=== PATIENT | male | born 1950 | race Caucasian/White ===

== ENCOUNTER 2022-11-02 22:12 | Emergency (ER) | payer MEDICARE, BC, SELFPAY ==
[2022-11-02 22:16] VITALS: BP 139/83; PULSE 81; TEMP 36.8; O2SAT 97
--- NOTE | 2022-11-02 22:26 | CRLHL7_ITS ---
For Patients: As a result of the Century Cures Act, medical imaging exams and procedure reports are released immediately into your electronic medical record. You may view this report before your referring provider. If you have questions, please contact your health care provider. INDICATION: [id number]. TECHNIQUE: Chest 2 views. COMPARISON: None. FINDINGS: Cardiovascular and mediastinum: Heart size and vasculature are normal in caliber and appearance. Lungs and pleural spaces: Hyperinflated lungs which could suggest emphysema. Lungs are clear. Blunting of the costophrenic angles. No sign of infiltrate or mass. No sign of large pleural effusion. No pneumothorax. Bones and soft tissues: No significant findings. IMPRESSION: Hyperinflated lungs which could suggest emphysema. No focal consolidations. Dictated by Star Garcia MD @ 11/02/2022 11:30:37 PM (Electronically Signed)
[2022-11-02 22:48] LABS: HCO3 VBG 28 mmol/L (21-28); PCO2 VBG 45 mmHG (40-50); PO2 VBG 47.6 mmHG (25-47); pH VBG 7.399 (7.32-7.43)
[2022-11-02 23:00] VITALS: O2SAT 95
[2022-11-02 23:03] LABS: Basophils Absolute Auto 0.04 K/uL (0.00-0.30); Basophils Percent Auto 0.5 % (0.0-3.0); Eosinophils Absolute Auto 0.54 K/uL (0.00-0.50); Eosinophils Percent Auto 6.4 % (0.0-7.0); Hematocrit 45.4 % (37.0-53.0); Hemoglobin* 14.8 gm/dL (13.5-17.5); Immature Granulocytes Abs Auto 0.01 K/uL (0.00-0.30); Immature Granulocytes Pct Auto 0.1 %; Lymphocytes Absolute Auto 3.02 K/uL (0.90-2.90); Lymphocytes Percent Auto 35.7 % (20-44); Mean Corpuscular HGB Conc 33 gm/dL (32-36); Mean Corpuscular Hemoglobin 30 pg (26-34); Mean Corpuscular Volume 93 fL (80-100); Monocytes Percent Auto 8.1 % (0.0-11.0); Neutrophils Absolute Auto 4.17 K/uL (1.7-7.0); Neutrophils Percent Auto 49.2 % (42.0-72.0); Platelet Count* 134 K/uL (140-440); RDW Coefficient of Variation % 14.2 % (11.5-15.5); Red Blood Count 4.88 m/uL (4.30-5.90); White Blood Count* 8.47 K/uL (4.50-11.00)
[2022-11-02 23:07] LABS: Albumin* 4.3 g/dL (3.3-5.0); Chloride* 106 mmol/L (96-114); Potassium* 3.9 mmol/L (3.6-5.1); Sodium* 138 mmol/L (135-149)
[2022-11-02 23:09] LABS: Bilirubin Total* 0.9 mg/dL (0.1-1.5); Creatinine* 0.7 mg/dL (0.5-1.5); Estimated Glomerular Filt Rate 97 ml/min
[2022-11-02 23:10] LABS: Alanine Aminotransferase* 21 U/L (4-50); Alkaline Phosphatase* 61 U/L (40-150); Aspartate Amino Transferase* 24 U/L (12-35); Blood Urea Nitrogen* 17 mg/dL (7-30); Calcium* 9.5 mg/dL (8.4-10.6); Carbon Dioxide* 27 mmol/L (20-32); Glucose* 102 mg/dL (60-115); Slide Review Reflex No; Total Protein* 7.2 g/dL (6.0-8.3)
--- NOTE | 2022-11-02 23:12 | ED.SOB ---
HPI - SOB/Dyspnea General Chief Complaint: Shortness of Breath/Dyspnea Stated Complaint: Shortness of breath Time Seen by Provider: 11/02/22 22:40 History of Present Illness HPI Narrative: Pt is a 72 year old gentleman with a long history of COPD who presents with increased shortness of breath for several days worse today. Pt still smokes a limited number of cigarettes daily. Pt states that his symptoms began several days ago when he ran out of prednisone which he was given for treatment of a recent COPD exaserbation. No fever or chills. No chest pain. No cough. Pt states that his shortness of breath which is chronic just has slowly been getting worse. Pt has no productive cough. Pt is on 2 liters of oxygen at home and EMS turned him up to 6 liters in route. Upon arrival we were able to decrease the oxygen back to his baseline of 2 liters. Related Data Home oxygen amount: 2 liters Home Medications Medication Instructions Recorded Confirmed albuterol sulfate 90 mcg/actuation inhalation 11/02/22 aerosol inhaler (Ventolin HFA) ipratropium 0.5 mg-albuterol 3 mg ml inhalation 11/02/22 (2.5 mg base)/3 mL nebulization soln tamsulosin 0.4 mg capsule mg PO 11/02/22 tiotropium 2.5 mcg-olodaterol 2.5 inhalation 11/02/22 mcg/actuation mist for inhalation (Stiolto Respimat) Previous Rx's Medication Instructions Recorded azithromycin 250 mg tablet See Rx Instructions PO .COMPLEX #6 11/03/22 (Zithromax Z-Bright) tabs prednisone 20 mg tablet 20 mg PO BID #10 tabs 11/03/22 Allergies Allergy/AdvReac Type Severity Reaction Status Date / Time No Known Drug Allergies Allergy Verified 11/02/22 22:21 Review of Systems Status of ROS: Reports: 10 or more systems reviewed and unremarkable except as noted in History and below [facility] Medical History (Updated 11/03/22 @ 01:00 by Royer Dunham MD) BPH (benign prostatic hyperplasia) COPD (chronic obstructive pulmonary disease) Social History Smoking Status: Current every day smoker What tobacco products do you use: cigarettes Do you use any of these nicotine containing products: None Second hand tobacco smoke exposure: Yes How often do you have a drink containing alcohol: 2-3 times a week AUDIT-C Alcohol total score: 3 Non-prescribed substance use: denies use Exam Narrative: Exam Narrative: EXAM GENERAL: Patient appears comfortable and well. Breathing oxygen via nasal canula. EYES: No scleral icterus. THYROID: no thyroid nodules or thyromegaly. LYMPH: No supraclavicular or cervical lymphadenopathy. SKIN: Visible skin seen during exam normal or with benign process only. EXT: No dependent lower extremity pedal edema. HEART: Regular rate and rhythm with no murmurs, rubs, or gallops. LUNGS: Decreased breath sounds bilaterally. With mild expiratory wheezes. ABD: Soft, non tender, non distended. PSYCH: Good eye contact, speech is not pressured. Const: Vital Signs, click to edit/add: Vital Signs - 24 hr 11/02/22 22:16 Temperature 98.2 F Pulse Rate [Left P ulse Oximeter] 81 Blood Pressure [Le ft Upper Arm] 139/83 Pulse Oximetry 97 Oxygen Delivery Me thod Nasal Cannula Oxygen Flow Rate 2 Course Course Hospital Course: CXR, Blood Gas, CBC, D dimer, troponin, BMP ordered. Pt resting comfortably. Reevaluation(s) Reevaluation #1: Labs and x ray unremarkable. Pt resting comfortably. Pt given 40 mg of IV Solumedrol. Time: 00:57 Vital Signs Vital signs: Initial Vital Signs Temperature 98.2 F 11/02/22 22:16 Temperature Source Temporal Artery Scan 11/02/22 22:16 Pulse Rate 81 11/02/22 22:16 Pulse Rhythm 11/02/22 22:16 Pulse Strength 3+ Normal 11/02/22 22:16 Blood Pressure 139/83 11/02/22 22:16 Blood Pressure Mean 104 11/02/22 22:16 Blood Pressure Position Sitting 11/02/22 22:16 Pulse Oximetry 97 11/02/22 22:16 Oxygen Delivery Method 11/02/22 22:16 Oxygen Flow Rate 2 11/02/22 22:16 Vital Signs Temperature 98.2 F 11/02/22 22:16 Pulse Rate 81 11/02/22 22:16 Blood Pressure 139/83 11/02/22 22:16 Pulse Oximetry 97 11/02/22 22:16 Oxygen Delivery Method 11/02/22 22:16 Oxygen Flow Rate 2 11/02/22 22:16 Temperature 98.2 F 11/02/22 22:16 Pulse Rate 81 11/02/22 22:16 Blood Pressure 139/83 11/02/22 22:16 Pulse Oximetry 97 11/02/22 22:16 Oxygen Delivery Method 11/02/22 22:16 Oxygen Flow Rate 2 11/02/22 22:16 MDM - SOB/Dyspnea MDM Narrative Medical decision making narrative: Pt is a 72 year old gentleman with a history of COPD who presents with SOB. Work up including blood work, viral swabs, chest x ray showed no acute findings. Pt on baseline oxygen. Pt given 40 mg of solumedrol IV and Zithromax and Prednisone sent to [facility] for him. Pt counseled on tobacco cessation. PCP follow up recommended. Continue home medications. Differential Diagnosis Differential diagnosis: Likely acute exacerbation of chronic obstructive airways disease, congestive heart failure, community acquired pneumonia, asthma with exacerbation and pulmonary embolism Lab Data Labs: Lab Results 11/02/22 11/02/22 11/02/22 Range/Units 22:39 22:39 22:39 WBC 8.47 (4.50-11.00) K/uL RBC 4.88 (4.30-5.90) m/uL Hgb 14.8 (13.5-17.5) gm/dL Hct 45.4 (37.0-53.0) % MCV 93 (80-100) fL MCH 30 (26-34) pg MCHC 33 (32-36) gm/dL RDW Coeff of Odalis 14.2 (11.5-15.5) % Plt Count 134 L (140-440) K/uL Neut % (Auto) 49.2 (42.0-72.0) % Lymph % (Auto) 35.7 (20-44) % [place] % (Auto) 8.1 (0.0-11.0) % Eos % (Auto) 6.4 (0.0-7.0) % Baso % (Auto) 0.5 (0.0-3.0) % Neut # (Auto) 4.17 (1.7-7.0) K/uL Lymph # (Auto) 3.02 H (0.90-2.90) K/uL [place] # (Auto) 0.70 (0.00-0.90) K/UL Eos # (Auto) 0.54 H (0.00-0.50) K/uL Baso # (Auto) 0.04 (0.00-0.30) K/uL D-Dimer Quant (PE/DVT) < 0.27 (0.00-0.50) ug/ml VBG pH (7.32-7.43) VBG pCO2 (40-50) mmHG VBG pO2 (25-47) mmHG VBG HCO3 (21-28) mmol/L Sodium 138 (135-149) mmol/L Potassium 3.9 (3.6-5.1) mmol/L Chloride 106 (96-114) mmol/L Carbon Dioxide 27 (20-32) mmol/L BUN 17 (7-30) mg/dL Creatinine 0.7 (0.5-1.5) mg/dL Estimated GFR 97 ml/min Glucose 102 (60-115) mg/dL Calcium 9.5 (8.4-10.6) mg/dL Total Bilirubin 0.9 (0.1-1.5) mg/dL AST 24 (12-35) U/L ALT 21 (4-50) U/L Alkaline Phosphatase 61 (40-150) U/L Troponin I < 0.01 L (0.01-0.04) ng/mL Total Protein 7.2 (6.0-8.3) g/dL Albumin 4.3 (3.3-5.0) g/dL SARS-CoV-2 (PCR) (Negative) Influenza Type A (PCR) (Negative) Influenza Type B (PCR) (Negative) RSV (PCR) (Negative) 11/02/22 11/02/22 Range/Units 22:39 23:51 WBC (4.50-11.00) K/uL RBC (4.30-5.90) m/uL Hgb (13.5-17.5) gm/dL Hct (37.0-53.0) % MCV (80-100) fL MCH (26-34) pg MCHC (32-36) gm/dL RDW Coeff of Odalis (11.5-15.5) % Plt Count (140-440) K/uL Neut % (Auto) (42.0-72.0) % Lymph % (Auto) (20-44) % [place] % (Auto) (0.0-11.0) % Eos % (Auto) (0.0-7.0) % Baso % (Auto) (0.0-3.0) % Neut # (Auto) (1.7-7.0) K/uL Lymph # (Auto) (0.90-2.90) K/uL [place] # (Auto) (0.00-0.90) K/UL Eos # (Auto) (0.00-0.50) K/uL Baso # (Auto) (0.00-0.30) K/uL D-Dimer Quant (PE/DVT) (0.00-0.50) ug/ml VBG pH 7.399 (7.32-7.43) VBG pCO2 45 (40-50) mmHG VBG pO2 47.6 H (25-47) mmHG VBG HCO3 28 (21-28) mmol/L Sodium (135-149) mmol/L Potassium (3.6-5.1) mmol/L Chloride (96-114) mmol/L Carbon Dioxide (20-32) mmol/L BUN (7-30) mg/dL Creatinine (0.5-1.5) mg/dL Estimated GFR ml/min Glucose (60-115) mg/dL Calcium (8.4-10.6) mg/dL Total Bilirubin (0.1-1.5) mg/dL AST (12-35) U/L ALT (4-50) U/L Alkaline Phosphatase (40-150) U/L Troponin I (0.01-0.04) ng/mL Total Protein (6.0-8.3) g/dL Albumin (3.3-5.0) g/dL SARS-CoV-2 (PCR) Negative SARS-CoV-2 (Negative) Influenza Type A (PCR) Negative PCR FLU A (Negative) Influenza Type B (PCR) Negative PCR FLU B (Negative) RSV (PCR) Negative PCR RSV (Negative) Discharge Plan Discharge Clinical Impression: Acute exacerbation of chronic obstructive pulmonary disease Patient Disposition: Home, Self-Care Condition: Stable Instructions: COPD (Chronic Obstructive Pulmonary Disease) (ED) Activity Level: No Restrictions Discharge Diet: Regular Prescriptions: New prednisone 20 mg tablet 20 mg PO BID Qty: 10 0RF azithromycin [Zithromax Z-Bright] 250 mg tablet See Rx Instructions .ROUTE .COMPLEX Qty: 6 0RF Rx Instructions: For 250 mg dose pack: take 500 mg today (day 1), then 250 mg for 4 days (days 2-5) No Action ipratropium-albuterol 0.5 mg-3 mg(2.5 mg base)/3 mL solution for nebulization INHALATION Label Comments: INHALE 3 ML VIA A NEBULIZER FOUR TIMES A DAY tamsulosin 0.4 mg capsule PO Label Comments: TAKE ONE CAPSULE BY MOUTH EVERY DAY AFTER A MEAL albuterol sulfate [Ventolin HFA] 90 mcg/actuation HFA aerosol inhaler INHALATION Label Comments: INHALE TWO PUFFS BY MOUTH EVERY 6 HOURS NEEDED FOR SHORTNESS OF BREATH 1ST CHOICE Stiolto Respimat 2.5-2.5 mcg/actuation mist INHALATION Label Comments: INHALE TWO PUFFS BY MOUTH EVERY DAY Follow Up/Referrals: Humberto Breen MD [Primary Care Provider] - Stand Alone Forms: [employer] Info Instructions
[2022-11-02 23:13] LABS: D Dimer Quantitative* < 0.27 ug/ml (0.00-0.50)
[2022-11-03 00:44] LABS: Troponin I* < 0.01 ng/mL (0.01-0.04)
[2022-11-03 00:45] LABS: PCR FLU A Negative PCR FLU A (Negative); PCR FLU B Negative PCR FLU B (Negative); PCR RSV Negative PCR RSV (Negative)
[2022-11-03 00:46] LABS: SARS PCR* Negative SARS-CoV-2 (Negative)
[2022-11-03] MEDS: METHYLPREDNISOLONE SOD SUCC 40 MG/ML IVP (00:59)
--- NOTE | 2022-11-03 01:00 | ED.NURSE ---
pt. able to be discharge home. unable to find a ride home. will keep patient in the ED until morning when we can arrange a taxi. pt. in agreement with this plan.
[2022-11-03 02:26] VITALS: BP 116/77; PULSE 65; RESP 16; O2SAT 95
[2022-11-03 04:02] VITALS: BP 110/76; PULSE 64; RESP 20; O2SAT 95
[2022-11-03 06:02] VITALS: BP 104/72; PULSE 62; RESP 18; O2SAT 96
[2022-11-03 07:00] VITALS: BP 104/72; PULSE 64; RESP 20; O2SAT 95
== END 2022-11-03 07:38 | disposition home or self-care (01) ==
PROVIDERS: Emergency Provider Internal Medicine; PCP Family Medicine
DX: J44.1 Chronic obstructive pulmonary disease with (acute) exacerbation (principal)
CPT/HCPCS: 36415; 71046; 80053; 82803; 84484; 85025; 85379; 87502; 87634; 87635; 94761; 96374; 99283; 99284; J2920

== ENCOUNTER 2022-11-10 09:56 | Outpatient (CLI) | payer MEDICARE, BC, SELFPAY | END 2022-11-10 09:57 | disposition home or self-care (01) | LOC: AMB 11-11 00:42 | PROVIDERS: PCP Family Medicine; Visit Provider Family Medicine | DX: J44.1 Chronic obstructive pulmonary disease with (acute) exacerbation (principal); R10.9 Unspecified abdominal pain | CPT/HCPCS: A0425; A0427 ==

== ENCOUNTER 2022-11-10 10:25 | Emergency (ER) | payer MEDICARE, BC, SELFPAY ==
[2022-11-10 10:30] VITALS: BP 107/74; PULSE 87; RESP 24; TEMP 36.4; O2SAT 98
--- NOTE | 2022-11-10 11:10 | ED_ITS ---
HPI - General Adult General Chief complaint: Abdominal Pain Stated complaint: Abdominal pain and COPD Time Seen by Provider: 11/10/22 10:53 Source: patient Limitations: no limitations History of Present Illness HPI narrative: 72-year-old male coming in today with several concerns. First, he is concerned that he has not had a bowel movement in 3 or 4 days. He states that usually he has a bowel movement every 1-2 days. This is causing him some abdominal discomfort located in the lower abdominal area. This discomfort does not radiate. He denies any fevers or chills. He is passing gas normally. He is not nauseated or vomiting. Second, he is concerned about urinary retention. He states that he has not been able to empty his bladder since the middle of the night. Again he has developed this increasing lower abdominal discomfort he is unsure whether not it is from the constipation or than urinary retention. He states that he is able to urinate tiny amounts at a time and nothing more than that. He constantly feels like he has to urinate and that he does not fully empty. He denies any nausea or vomiting. He denies changes in his appetite. He states that this is causing him some anxiety and he has bursts of anxiety that caused him to feel short of breath. He states that he has had this in the past any has been told that he has poorly controlled anxiety. He does have COPD and is on chronic O2 at home. He states that he has not had to increase his oxygen. He denies cough. He denies feeling short of breath constantly, just when he has these bursts of what he describes as anxiety. He denies any chest pain. He denies feeling weak or dizzy. He denies any blood in his urine. He does tell me that he has had urinary retention in the past but he has never had an indwelling Sterling. Patient does have a history of BPH. He was also recently treated for COPD exacerbation with azithromycin and prednisone, both treatments are now done. Patient, today, is requesting just a Sterling catheter in an out and he does not want an indwelling catheter. He also does not want an enema to help him have a bowel movement. Patient does live by himself, continues to smoke daily. Related Data Home Medications Medication Instructions Recorded Confirmed albuterol sulfate 90 mcg/actuation inhalation 11/02/22 aerosol inhaler (Ventolin HFA) ipratropium 0.5 mg-albuterol 3 mg ml inhalation 11/02/22 (2.5 mg base)/3 mL nebulization soln tamsulosin 0.4 mg capsule mg PO 11/02/22 tiotropium 2.5 mcg-olodaterol 2.5 inhalation 11/02/22 mcg/actuation mist for inhalation (Stiolto Respimat) Previous Rx's Medication Instructions Recorded azithromycin 250 mg tablet See Rx Instructions PO .COMPLEX #6 11/03/22 (Zithromax Z-Bright) tabs prednisone 20 mg tablet 20 mg PO BID #10 tabs 11/03/22 Allergies Allergy/AdvReac Type Severity Reaction Status Date / Time No Known Drug Allergies Allergy Verified 11/02/22 22:21 Review of Systems Status of ROS: Reports: 10 or more systems reviewed and unremarkable except as noted in History and below [facility] Medical History BPH (benign prostatic hyperplasia) COPD (chronic obstructive pulmonary disease) Social History Smoking Status: Current every day smoker What tobacco products do you use: cigarettes Do you use any of these nicotine containing products: None Second hand tobacco smoke exposure: Yes How often do you have a drink containing alcohol: 2-3 times a week AUDIT-C Alcohol total score: 3 Non-prescribed substance use: denies use service: No Exam Narrative: Exam Narrative: Thin, elderly patient in no acute distress. Alert and oriented. Answers questions appropriately. Mood and affect are appropriate. Thoughts are goal oriented and rational. No tangential or magical thinking noted. Patient does not appear to be in any respiratory distress. HEENT: Normocephalic atraumatic. Pupils are equally round reactive to light. Extraocular muscles are intact. Conjunctivae are moist without any icterus noted. Moist mucous membranes. Cardiovascular: Heart is regular rate and rhythm S1 and S2 are present without any murmurs. Lungs: Markedly decreased breath sounds bilaterally. Abdomen: Soft. He has mild abdominal distension. He has mild abdominal discomfort in the suprapubic region with a fullness of the area. Bowel sounds are normal. Extremities: Bilateral lower extremities are without edema. Skin: Well perfused without any obvious rashes. Const: Vital Signs, click to edit/add: Vital Signs - 24 hr 11/10/22 10:30 Temperature 97.6 F Pulse Rate [Pulse Oximeter] 87 Respiratory Rate 24 Blood Pressure [Le ft Upper Arm] 107/74 Pulse Oximetry 98 Oxygen Delivery Me thod Nasal Cannula Course Course Hospital Course: After discussion patient did agree to an indwelling Sterling. Sterling was placed and 750 mL of clear yellow urine was drained. That did bring him some slight relief to his abdominal discomfort. Re-examination revealed that the fullness in the suprapubic region had resolved and the abdomen was soft and nontender. We proceeded with more conversations regarding his constipation and patient refused an enema today. He requested milk of magnesia which he was given but then he did not want to drink as he was concerned he would have a blowout. We discussed that this was not likely although not impossible. Patient then did take the magnesium hydroxide orally without any issues. His lab work was unremarkable, no evidence of infection noted. Chest ray, read by me, did not show any acute infiltrates and was consistent with COPD. Vital Signs Vital signs: Initial Vital Signs Temperature 97.6 F 11/10/22 10:30 Temperature Source Temporal Artery Scan 11/10/22 10:30 Pulse Rate 87 11/10/22 10:30 Pulse Rhythm 11/10/22 10:30 Respiratory Rate 24 11/10/22 10:30 Blood Pressure 107/74 11/10/22 10:30 Blood Pressure Mean 85 11/10/22 10:30 Blood Pressure Position Sitting 11/10/22 10:30 Pulse Oximetry 98 11/10/22 10:30 Oxygen Delivery Method 11/10/22 10:30 Vital Signs Temperature 97.6 F 11/10/22 10:30 Pulse Rate 87 11/10/22 10:30 Respiratory Rate 24 11/10/22 10:30 Blood Pressure 107/74 11/10/22 10:30 Pulse Oximetry 98 11/10/22 10:30 Oxygen Delivery Method 11/10/22 10:30 Temperature 97.6 F 11/10/22 10:30 Pulse Rate 87 11/10/22 10:30 Respiratory Rate 24 11/10/22 10:30 Blood Pressure 107/74 11/10/22 10:30 Pulse Oximetry 98 11/10/22 10:30 Oxygen Delivery Method 11/10/22 10:30 Medical Decision Making MDM Narrative Medical decision making narrative: 72-year-old male with urinary retention, indwelling Sterling placed today. Patient started to follow-up with primary care provider Saturday or Saturday for removal and follow-up. Constipation-patient will start daily MiraLax. Again refused an enema in the ER today. We discussed increasing fluid intake as well. I do not appreciate any evidence of bowel obstruction today. COPD-stable. Medical Records Medical records reviewed: Yes I reviewed the patient's medical records Lab Data Lab results reviewed: Yes I reviewed the patient's lab results Labs: Lab Results 11/10/22 11/10/22 11/10/22 Range/Units 11:15 11:17 11:17 WBC 8.32 (4.50-11.00) K/uL RBC 4.80 (4.30-5.90) m/uL Hgb 14.6 (13.5-17.5) gm/dL Hct 44.7 (37.0-53.0) % MCV 93 (80-100) fL MCH 30 (26-34) pg MCHC 33 (32-36) gm/dL RDW Coeff of Odalis 13.9 (11.5-15.5) % Plt Count 138 L (140-440) K/uL Neut % (Auto) 59.6 (42.0-72.0) % Lymph % (Auto) 28.1 (20-44) % [place] % (Auto) 5.5 (0.0-11.0) % Eos % (Auto) 6.5 (0.0-7.0) % Baso % (Auto) 0.2 (0.0-3.0) % Neut # (Auto) 4.95 (1.7-7.0) K/uL Lymph # (Auto) 2.34 (0.90-2.90) K/uL [place] # (Auto) 0.50 (0.00-0.90) K/UL Eos # (Auto) 0.54 H (0.00-0.50) K/uL Baso # (Auto) 0.02 (0.00-0.30) K/uL Sodium 135 (135-149) mmol/L Potassium 4.1 (3.6-5.1) mmol/L Chloride 102 (96-114) mmol/L Carbon Dioxide 30 (20-32) mmol/L BUN 17 (7-30) mg/dL Creatinine 0.7 (0.5-1.5) mg/dL Estimated GFR 97 ml/min Glucose 103 (60-115) mg/dL Calcium 9.3 (8.4-10.6) mg/dL Total Bilirubin 0.8 (0.1-1.5) mg/dL Direct Bilirubin 0.2 (0.0-0.5) mg/dL AST 23 (12-35) U/L ALT 21 (4-50) U/L Alkaline Phosphatase 61 (40-150) U/L Total Protein 6.8 (6.0-8.3) g/dL Albumin 4.2 (3.3-5.0) g/dL Lipase 33 (23-300) U/L Urine Color Yellow (Yellow) Urine Appearance Clear (Clear) Urine pH 6.0 (5.0-8.5) Ur Specific [place] 1.020 (1.000-1.030) Urine Protein Negative (Negative) Urine Glucose (UA) Negative (Negative) Urine Ketones Negative (Negative) Urine Blood Negative (Negative) Urine Nitrite Negative (Negative) Urine Bilirubin Negative (Negative) Urine Urobilinogen 0.2 (0.2-1.0) Ur Leukocyte Esterase Negative (Negative) Urine RBC 0-2 (0-2) Urine WBC 0-2 (0-5) Ur Squamous Epith Cells None (None-Few) Urine Bacteria Few A (None) ECG Data Attestation: I personally reviewed and interpreted this ECG as follows: (Normal sinus rhythm, pulse 84.) Discharge Plan Discharge Clinical Impression: Acute urinary retention, Constipation Patient Disposition: Home, Self-Care Condition: Improved Additional Instructions: Leave your urinary Sterling in place until you follow-up with your primary care provider Saturday or Saturday for removal. Increase your daily fluid intake. Start daily MiraLax 1 scoop full daily (you can purchase this [id number]), continue taking your stool softener tablets. Return to the ER if you develop worsening abdominal discomfort and are unable to pass stool. Prescriptions: No Action ipratropium-albuterol 0.5 mg-3 mg(2.5 mg base)/3 mL solution for nebulization INHALATION Label Comments: INHALE 3 ML VIA A NEBULIZER FOUR TIMES A DAY tamsulosin 0.4 mg capsule PO Label Comments: TAKE ONE CAPSULE BY MOUTH EVERY DAY AFTER A MEAL albuterol sulfate [Ventolin HFA] 90 mcg/actuation HFA aerosol inhaler INHALATION Label Comments: INHALE TWO PUFFS BY MOUTH EVERY 6 HOURS NEEDED FOR SHORTNESS OF BREATH 1ST CHOICE Stiolto Respimat 2.5-2.5 mcg/actuation mist INHALATION Label Comments: INHALE TWO PUFFS BY MOUTH EVERY DAY prednisone 20 mg tablet 20 mg PO BID Qty: 10 0RF azithromycin [Zithromax Z-Bright] 250 mg tablet See Rx Instructions .ROUTE .COMPLEX Qty: 6 0RF Rx Instructions: For 250 mg dose pack: take 500 mg today (day 1), then 250 mg for 4 days (days 2-5) Follow Up/Referrals: Humberto Breen MD [Primary Care Provider] - Stand Alone Forms: [facility] Info Instructions
[2022-11-10 11:27] LABS: Basophils Absolute Auto 0.02 K/uL (0.00-0.30); Basophils Percent Auto 0.2 % (0.0-3.0); Eosinophils Absolute Auto 0.54 K/uL (0.00-0.50); Eosinophils Percent Auto 6.5 % (0.0-7.0); Hematocrit 44.7 % (37.0-53.0); Hemoglobin* 14.6 gm/dL (13.5-17.5); Immature Granulocytes Abs Auto 0.01 K/uL (0.00-0.30); Immature Granulocytes Pct Auto 0.1 %; Lymphocytes Absolute Auto 2.34 K/uL (0.90-2.90); Lymphocytes Percent Auto 28.1 % (20-44); Mean Corpuscular HGB Conc 33 gm/dL (32-36); Mean Corpuscular Hemoglobin 30 pg (26-34); Mean Corpuscular Volume 93 fL (80-100); Monocytes Percent Auto 5.5 % (0.0-11.0); Neutrophils Absolute Auto 4.95 K/uL (1.7-7.0); Neutrophils Percent Auto 59.6 % (42.0-72.0); Platelet Count* 138 K/uL (140-440); RDW Coefficient of Variation % 13.9 % (11.5-15.5); White Blood Count* 8.32 K/uL (4.50-11.00)
[2022-11-10 11:31] LABS: Slide Review Reflex No
[2022-11-10 11:34] LABS: Appearance Urine Clear (Clear); Bilirubin Urine Negative (Negative); Blood Urine Negative (Negative); Color Urine Yellow (Yellow); Glucose Urine Negative (Negative); Ketones Urine Negative (Negative); Leukocyte Esterase Urine Negative (Negative); Nitrite Urine Negative (Negative); Protein Urine Negative (Negative); Urobilinogen Urine 0.2 (0.2-1.0)
[2022-11-10 11:37] LABS: Albumin* 4.2 g/dL (3.3-5.0)
[2022-11-10 11:38] LABS: Chloride* 102 mmol/L (96-114); Potassium* 4.1 mmol/L (3.6-5.1); Sodium* 135 mmol/L (135-149)
[2022-11-10 11:40] LABS: Aspartate Amino Transferase* 23 U/L (12-35); Bilirubin Direct* 0.2 mg/dL (0.0-0.5); Bilirubin Total* 0.8 mg/dL (0.1-1.5); Blood Urea Nitrogen* 17 mg/dL (7-30); Carbon Dioxide* 30 mmol/L (20-32); Creatinine* 0.7 mg/dL (0.5-1.5); Estimated Glomerular Filt Rate 97 ml/min; Total Protein* 6.8 g/dL (6.0-8.3)
[2022-11-10 11:41] LABS: Alanine Aminotransferase* 21 U/L (4-50); Alkaline Phosphatase* 61 U/L (40-150); Calcium* 9.3 mg/dL (8.4-10.6); Glucose* 103 mg/dL (60-115); Lipase* 33 U/L (23-300)
[2022-11-10 11:55] LABS: Bacteria Urine Few; RBC Urine 0-2 (0-2); WBC Urine 0-2 (0-5)
--- NOTE | 2022-11-10 12:40 | CRLHL7_ITS ---
For Patients: As a result of the Cures Act, medical imaging exams and procedure reports are released immediately into your electronic medical record. You may view this report before your referring provider. If you have questions, please contact your health care provider. INDICATION: Shortness of breath TECHNIQUE: Chest radiograph 1 view COMPARISON: 11/02/2022, 06/01/2011 FINDINGS: Mediastinum: The mediastinum is normal in appearance. The heart silhouette is normal in size and morphology. Lung: Bilateral pulmonary hyperinflation and lucency is noted. A punctate granuloma is noted in the left lower lung zone. No sign of pleural effusion seen. No pneumothorax is identified. Bone and Soft tissue: Unremarkable for age. IMPRESSION: 1. Bilateral pulmonary hyperinflation and lucency is noted. If the patient has a history of smoking, this is suggestive of severe, stable pulmonary emphysema. Dictated by Jonn Nunn MD @ 11/10/2022 1:08:29 PM Dictated by: Jonn Nunn MD @ 11/10/2022 13:08:48 (Electronically Signed)
== END 2022-11-10 13:48 | disposition home or self-care (01) ==
PROVIDERS: Emergency Provider Family Medicine; PCP Family Medicine
DX: R33.9 Retention of urine, unspecified (principal); K59.00 Constipation, unspecified; J44.9 Chronic obstructive pulmonary disease, unspecified
CPT/HCPCS: 36415; 51702; 71045; 80048; 80076; 81001; 83690; 85025; 87086; 93005; 99284; 99285

== ENCOUNTER 2022-11-14 00:34 | Outpatient (CLI) | payer MEDICARE, BC, MEDICAID, SELFPAY | END 2022-11-14 00:35 | disposition home or self-care (01) | LOC: AMB 11-16 09:28 | PROVIDERS: PCP Family Medicine; Visit Provider Family Medicine | DX: R06.09 Other forms of dyspnea (principal) | CPT/HCPCS: A0425; A0427 ==

== ENCOUNTER 2022-11-14 00:56 | Emergency (ER) | payer MEDICARE, BC, SELFPAY ==
[2022-11-14] VITALS (11 sets, daily range): BP systolic 105–141; BP diastolic 60–85; PULSE 72–101; RESP 18–36; TEMP 36.1–36.6; O2SAT 94–98
--- NOTE | 2022-11-14 01:30 | CRLHL7_ITS ---
For Patients: As a result of the Century Cures Act, medical imaging exams and procedure reports are released immediately into your electronic medical record. You may view this report before your referring provider. If you have questions, please contact your health care provider. INDICATION: Dyspnea. TECHNIQUE: Chest 1 view. COMPARISON: 11/10/2022. FINDINGS: Cardiovascular and mediastinum: Heart size and vasculature are normal in caliber and appearance. Lungs and pleural spaces: Hyperinflated lungs. Lungs are clear. No sign of infiltrate or mass. No sign of pleural effusion. No pneumothorax. Bones and soft tissues: No significant findings. IMPRESSION: No acute abnormality or significant interval change. Dictated by Rony Deshpande MD @ 11/14/2022 1:45:20 AM (Electronically Signed)
--- NOTE | 2022-11-14 01:31 | ED_ITS ---
HPI - SOB/Dyspnea General Chief Complaint: Shortness of Breath/Dyspnea Stated Complaint: shortness of breath Time Seen by Provider: 11/14/22 01:20 History of Present Illness HPI Narrative: 72-year-old man with history of COPD and oxygen dependent at around 2 L at home, presents to the emergency department after getting up off the couch ambulating to the kitchen suddenly short of breath. He describes these episodes happening in the past and where his oxygen saturations will drop to the mid-70s. He does have inhaler but apparently not nebulizer (clarified later does have though unclear which medicine) Is just having trouble regaining his breath so he called for help. No cough or cold symptoms recently. By the time I am seeing him he has improved a little bit in oxygen saturations and says he is feeling things start to break up. I had asked him whether not he thought this might be mucous plugging and he nods. Does continue to smoke half to quarter pack daily. No fever no unusual cough for cold symptoms prior to this. No chest pain. Denies a history of cardiac disease. Related Data Home Medications Medication Instructions Recorded Confirmed albuterol sulfate 90 mcg/actuation inhalation 11/02/22 aerosol inhaler (Ventolin HFA) ipratropium 0.5 mg-albuterol 3 mg ml inhalation 11/02/22 (2.5 mg base)/3 mL nebulization soln tamsulosin 0.4 mg capsule mg PO 11/02/22 tiotropium 2.5 mcg-olodaterol 2.5 inhalation 11/02/22 mcg/actuation mist for inhalation (Stiolto Respimat) Previous Rx's Medication Instructions Recorded azithromycin 250 mg tablet See Rx Instructions PO .COMPLEX #6 11/03/22 (Zithromax Z-Bright) tabs prednisone 20 mg tablet 20 mg PO BID #10 tabs 11/03/22 albuterol sulfate 2.5 mg/0.5 mL 2.5 mg (0.5 mL) inhalation Q4H PRN 11/14/22 solution for nebulization shortness of breath or wheezing #30 ea ipratropium 0.5 mg-albuterol 3 mg 3 ml inhalation QID PRN #90 mL 11/14/22 (2.5 mg base)/3 mL nebulization soln prednisone 20 mg tablet 40 mg PO DAILY 5 days #10 tabs 11/14/22 Allergies Allergy/AdvReac Type Severity Reaction Status Date / Time No Known Drug Allergies Allergy Verified 11/14/22 13:52 Review of Systems Status of ROS: Reports: 10 or more systems reviewed and unremarkable except as noted in History and below [facility] Medical History BPH (benign prostatic hyperplasia) COPD (chronic obstructive pulmonary disease) Social History Smoking Status: Current every day smoker What tobacco products do you use: cigarettes Do you use any of these nicotine containing products: None Second hand tobacco smoke exposure: Yes How often do you have a drink containing alcohol: 2-3 times a week AUDIT-C Alcohol total score: 3 Non-prescribed substance use: denies use service: No Exam Narrative: Exam Narrative: Calm. Nasal cannula in place. Moderately labored in breathing. Slim. Diminished breath sounds generally with some trace wheeze, end inspiratory and expiratory. Cardiovascular with regular rate and rhythm. Distant. Abdomen is flat soft appears to be nontender. Cranial nerves 2-12 look to be intact. Extremities are without edema. Oropharynx is hyperemic upper denture plate Const: Vital Signs, click to edit/add: Vital Signs - 24 hr 11/14/22 01:00 11/14/22 01:06 11/14/22 01:09 Temperature 97.0 F L Pulse Rate [Left P ulse Oximeter] 89 Respiratory Rate 36 H Blood Pressure [Le ft Upper Arm] 139/85 Pulse Oximetry 94 96 96 Oxygen Delivery Me thod Nasal Cannula Nasal Cannula Room Air Oxygen Flow Rate 2 2 11/14/22 01:29 11/14/22 01:29 11/14/22 01:41 Temperature Pulse Rate [Left P ulse Oximeter] 80 Respiratory Rate Blood Pressure [Le ft Upper Arm] 125/60 Pulse Oximetry 96 96 98 Oxygen Delivery Me thod Nasal Cannula Nasal Cannula Oxygen Flow Rate 11/14/22 03:30 11/14/22 02:00 11/14/22 03:00 Temperature 97.0 F L Pulse Rate [Left P ulse Oximeter] 92 101 H Respiratory Rate 24 28 H Blood Pressure [Le ft Upper Arm] 117/81 131/72 141/83 H Pulse Oximetry 96 95 96 Oxygen Delivery Me thod Nasal Cannula Nasal Cannula Nasal Cannula Oxygen Flow Rate 2 11/14/22 02:30 11/14/22 06:02 11/14/22 08:33 Temperature 97.8 F Pulse Rate [Left P ulse Oximeter] 90 72 95 Respiratory Rate 18 18 Blood Pressure [Le ft Upper Arm] 129/70 105/67 106/68 Pulse Oximetry 96 97 Oxygen Delivery Me thod Nasal Cannula Nasal Cannula Oxygen Flow Rate Documenting provider has reviewed patient's vital signs: yes Course Vital Signs Vital signs: Initial Vital Signs Temperature 97.0 F L 11/14/22 01:00 Temperature Source Temporal Artery Scan 11/14/22 01:00 Pulse Rate 89 11/14/22 01:00 Pulse Rhythm 11/14/22 01:00 Respiratory Rate 36 H 11/14/22 01:00 Blood Pressure 139/85 11/14/22 01:00 Blood Pressure Mean 103 11/14/22 01:00 Blood Pressure Position Semi-Fowlers 11/14/22 01:00 Pulse Oximetry 94 11/14/22 01:00 Oxygen Delivery Method 11/14/22 01:00 Oxygen Flow Rate 2 11/14/22 01:00 Vital Signs Temperature 97.0 F L 11/14/22 01:00 Pulse Rate 89 11/14/22 01:00 Respiratory Rate 36 H 11/14/22 01:00 Blood Pressure 139/85 11/14/22 01:00 Pulse Oximetry 94 11/14/22 01:00 Oxygen Delivery Method 11/14/22 01:00 Oxygen Flow Rate 2 11/14/22 01:00 Temperature 97.8 F 11/14/22 08:33 Pulse Rate 95 11/14/22 08:33 Respiratory Rate 18 11/14/22 08:33 Blood Pressure 106/68 11/14/22 08:33 Pulse Oximetry 97 11/14/22 06:02 Oxygen Delivery Method 11/14/22 06:02 Oxygen Flow Rate 2 11/14/22 03:00 MDM - SOB/Dyspnea MDM Narrative Medical decision making narrative: Continue to be rather dyspneic and labored in breathing. Sats acceptable. Chest x-ray reviewed by me is hyperexpanded. No infiltrative process appreciated. Was given a DuoNeb in later albuterol neb. presuming that anxiety playing somewhat of a rolls also given lorazepam. Evaluated however at 1 point he just felt like he could not breathe through his nose ?why can not breathe through my nose?. Did have good deal of mucus in the right side. Was dosed with Afrin. Not clear that that really made a difference. 80 mg of prednisone. Ultimately slept breathing calmly vital stable in the emergency department. Medical Records Attestation: I reviewed the patient's medical records. Lab Data Attestation: I reviewed the patient's lab results. Labs: Lab Results 11/14/22 11/14/22 11/14/22 Range/Units 02:28 02:28 02:40 WBC 9.93 (4.50-11.00) K/uL RBC 4.80 (4.30-5.90) m/uL Hgb 14.5 (13.5-17.5) gm/dL Hct 45.7 (37.0-53.0) % MCV 95 (80-100) fL MCH 30 (26-34) pg MCHC 32 (32-36) gm/dL RDW Coeff of Odalis 14.1 (11.5-15.5) % Plt Count 144 (140-440) K/uL Neut % (Auto) 47.3 (42.0-72.0) % Lymph % (Auto) 38.1 (20-44) % Nolan % (Auto) 6.6 (0.0-11.0) % Eos % (Auto) 7.6 H (0.0-7.0) % Baso % (Auto) 0.3 (0.0-3.0) % Neut # (Auto) 4.70 (1.7-7.0) K/uL Lymph # (Auto) 3.78 H (0.90-2.90) K/uL Nolan # (Auto) 0.70 (0.00-0.90) K/UL Eos # (Auto) 0.80 H (0.00-0.50) K/uL Baso # (Auto) 0.03 (0.00-0.30) K/uL D-Dimer Quant (PE/DVT) (0.00-0.50) ug/ml VBG pH (7.32-7.43) VBG pCO2 (40-50) mmHG VBG pO2 (25-47) mmHG VBG HCO3 (21-28) mmol/L Sodium 141 (135-149) mmol/L Potassium 3.9 (3.6-5.1) mmol/L Chloride 109 (96-114) mmol/L Carbon Dioxide 29 (20-32) mmol/L BUN 21 (7-30) mg/dL Creatinine 0.7 (0.5-1.5) mg/dL Estimated GFR 97 ml/min Glucose 109 (60-115) mg/dL Calcium 9.2 (8.4-10.6) mg/dL Magnesium 2.3 (1.5-2.6) mg/dL Troponin I < 0.01 L (0.01-0.04) ng/mL C-Reactive Protein < 0.5 L (0.5-1.0) mg/dL NT-Pro-B Natriuret Pep 128 pg/mL SARS-CoV-2 (PCR) (Negative) Influenza Type A (PCR) (Negative) Influenza Type B (PCR) (Negative) POC Troponin I 0.01 (0.01-0.04) ng/ml 11/14/22 11/14/22 11/14/22 Range/Units 02:40 02:40 02:45 WBC (4.50-11.00) K/uL RBC (4.30-5.90) m/uL Hgb (13.5-17.5) gm/dL Hct (37.0-53.0) % MCV (80-100) fL MCH (26-34) pg MCHC (32-36) gm/dL RDW Coeff of Odalis (11.5-15.5) % Plt Count (140-440) K/uL Neut % (Auto) (42.0-72.0) % Lymph % (Auto) (20-44) % Nolan % (Auto) (0.0-11.0) % Eos % (Auto) (0.0-7.0) % Baso % (Auto) (0.0-3.0) % Neut # (Auto) (1.7-7.0) K/uL Lymph # (Auto) (0.90-2.90) K/uL Nolan # (Auto) (0.00-0.90) K/UL Eos # (Auto) (0.00-0.50) K/uL Baso # (Auto) (0.00-0.30) K/uL D-Dimer Quant (PE/DVT) 0.35 (0.00-0.50) ug/ml VBG pH 7.364 (7.32-7.43) VBG pCO2 51 H (40-50) mmHG VBG pO2 47.4 H (25-47) mmHG VBG HCO3 29 H (21-28) mmol/L Sodium (135-149) mmol/L Potassium (3.6-5.1) mmol/L Chloride (96-114) mmol/L Carbon Dioxide (20-32) mmol/L BUN (7-30) mg/dL Creatinine (0.5-1.5) mg/dL Estimated GFR ml/min Glucose (60-115) mg/dL Calcium (8.4-10.6) mg/dL Magnesium (1.5-2.6) mg/dL Troponin I (0.01-0.04) ng/mL C-Reactive Protein (0.5-1.0) mg/dL NT-Pro-B Natriuret Pep pg/mL SARS-CoV-2 (PCR) Negative SARS-CoV-2 (Negative) Influenza Type A (PCR) Negative PCR FLU A (Negative) Influenza Type B (PCR) Negative PCR FLU B (Negative) POC Troponin I (0.01-0.04) ng/ml ECG Data Attestation: I personally reviewed and interpreted this ECG as follows: ( Sinus rhythm with PACs at a rate of 87) Discharge Plan Discharge Clinical Impression: Mucus plugging of bronchi, Acute exacerbation of chronic obstructive pulmonary disease Patient Disposition: Home, Self-Care Condition: Improved Additional Instructions: hydrate. Take it easy today. I am wondering if you might benefit from a brief course of steroids at least. I'd like to send this to the pharmacy and have these there for you if you might scott you mind. I do think that regularly-dosed DuoNebs ( contains albuterol and ipratropium bromide) for the next 3-4 days would be a good idea; also sent to the pharmacy. Take with you the nebulization tubing, etc that you used here today. For breakthrough shortness of air, can use your albuterol. If you actually have a DuoNebs and are out of albuterol nebulizations, I sent those in as well. Those are to be used though when you're more short of air, not just for regular dosing as indicated above for the combination DuoNebs. something else that might be helpful is to use distilled water in the nebulization. whenever you feel you might want it. Do whawtever you can to quit smoking. See handout on further information. Prescriptions: New ipratropium-albuterol 0.5 mg-3 mg(2.5 mg base)/3 mL solution for nebulization 3 ml inhalation QID PRNQty: 90 0RF prednisone 20 mg tablet 40 mg PO DAILY 5 Days Qty: 10 1RF albuterol sulfate 2.5 mg/0.5 mL solution for nebulization 2.5 mg inhalation Q4H PRN (Reason: shortness of breath or wheezing) Qty: 30 0RF No Action ipratropium-albuterol 0.5 mg-3 mg(2.5 mg base)/3 mL solution for nebulization INHALATION Label Comments: INHALE 3 ML VIA A NEBULIZER FOUR TIMES A DAY tamsulosin 0.4 mg capsule PO Label Comments: TAKE ONE CAPSULE BY MOUTH EVERY DAY AFTER A MEAL albuterol sulfate [Ventolin HFA] 90 mcg/actuation HFA aerosol inhaler INHALATION Label Comments: INHALE TWO PUFFS BY MOUTH EVERY 6 HOURS NEEDED FOR SHORTNESS OF BREATH 1ST CHOICE Stiolto Respimat 2.5-2.5 mcg/actuation mist INHALATION Label Comments: INHALE TWO PUFFS BY MOUTH EVERY DAY prednisone 20 mg tablet 20 mg PO BID Qty: 10 0RF azithromycin [Zithromax Z-Bright] 250 mg tablet See Rx Instructions .ROUTE .COMPLEX Qty: 6 0RF Rx Instructions: For 250 mg dose pack: take 500 mg today (day 1), then 250 mg for 4 days (days 2-5) Follow Up/Referrals: Humberto Breen MD [Primary Care Provider] - Stand Alone Forms: [employer] Info Instructions
[2022-11-14] MEDS: IPRAT-ALBUT 0.5-2.5 MG/3 ML NEB 1 NEB IH (01:35)
[2022-11-14] MEDS: ALBUTEROL SULFATE 2.5 MG/3 ML VIAL.NEB NEB (02:06)
[2022-11-14] MEDS: predniSONE 20 MG TABLET 80 MG PO (02:06)
[2022-11-14] MEDS: OXYMETAZOLINE 0.05% NASAL SPRAY 2 SPRAY NOSTRIL-B (02:07)
[2022-11-14 02:49] LABS: HCO3 VBG 29 mmol/L (21-28); PCO2 VBG 51 mmHG (40-50); PO2 VBG 47.4 mmHG (25-47); pH VBG 7.364 (7.32-7.43)
[2022-11-14 02:50] LABS: Basophils Absolute Auto 0.03 K/uL (0.00-0.30); Basophils Percent Auto 0.3 % (0.0-3.0); Eosinophils Percent Auto 7.6 % (0.0-7.0); Hematocrit 45.7 % (37.0-53.0); Hemoglobin* 14.5 gm/dL (13.5-17.5); Immature Granulocytes Abs Auto 0.01 K/uL (0.00-0.30); Immature Granulocytes Pct Auto 0.1 %; Lymphocytes Absolute Auto 3.78 K/uL (0.90-2.90); Lymphocytes Percent Auto 38.1 % (20-44); Mean Corpuscular HGB Conc 32 gm/dL (32-36); Mean Corpuscular Hemoglobin 30 pg (26-34); Mean Corpuscular Volume 95 fL (80-100); Monocytes Percent Auto 6.6 % (0.0-11.0); Neutrophils Percent Auto 47.3 % (42.0-72.0); Platelet Count* 144 K/uL (140-440); RDW Coefficient of Variation % 14.1 % (11.5-15.5); Slide Review Reflex No; White Blood Count* 9.93 K/uL (4.50-11.00)
[2022-11-14 02:53] LABS: Troponin, Point-of-Care* 0.01 ng/ml (0.01-0.04)
[2022-11-14] MEDS: LORazepam 2 MG/ML inj 0.5 MG IVP (03:00)
[2022-11-14 03:13] LABS: Chloride* 109 mmol/L (96-114); Potassium* 3.9 mmol/L (3.6-5.1); Sodium* 141 mmol/L (135-149)
[2022-11-14 03:15] LABS: Creatinine* 0.7 mg/dL (0.5-1.5); Estimated Glomerular Filt Rate 97 ml/min
[2022-11-14 03:16] LABS: Blood Urea Nitrogen* 21 mg/dL (7-30); Carbon Dioxide* 29 mmol/L (20-32); Glucose* 109 mg/dL (60-115)
[2022-11-14 03:17] LABS: Calcium* 9.2 mg/dL (8.4-10.6)
[2022-11-14 03:18] LABS: D Dimer Quantitative* 0.35 ug/ml (0.00-0.50)
[2022-11-14 03:24] LABS: C Reactive Protein* < 0.5 mg/dL (0.5-1.0)
[2022-11-14 03:26] LABS: NT Pro B Type NatriureticPept* 128 pg/mL
[2022-11-14 03:34] LABS: Troponin I* < 0.01 ng/mL (0.01-0.04)
[2022-11-14 03:37] LABS: PCR FLU A Negative PCR FLU A (Negative); PCR FLU B Negative PCR FLU B (Negative)
[2022-11-14 03:38] LABS: Magnesium* 2.3 mg/dL (1.5-2.6)
[2022-11-14 03:59] LABS: SARS PCR* Negative SARS-CoV-2 (Negative)
--- NOTE | 2022-11-14 08:23 | PC.NURSE ---
When discharging patient from ER, patient complained that catheter was leaking. Understood that patient has had catheter since saturday due to urinary retention. Per patient, he has a follow up appointment today at 1pm to address need for catheter. Bladder scan was performed and found residual of 17cc of urine. No signs of leakage noted during assessment. MD asked that we irrigate catheter. 90ml was instilled and able to get urine back. No signs of mucous plug. Changed night bag to leg bag and educated patient on how to care for it. Sent night bag, alcohol wipes and syringe with patient. Encouraged patient to keep his appointment today to address the need for the catheter. Patient does not have ride home and requested that we call a cab for him. Patient has own oxygen concentrator that he was sent home on. PIV taken out and catheter intact. Prescriptions sent to his pharmacy.
--- NOTE | 2022-11-14 13:57 | ED.NURSE ---
Reports feeling unsafe at home due to these episodes and has had thoughts of suicide but does not have a plan. MD notified.
== END 2022-11-14 08:35 | disposition home or self-care (01) ==
PROVIDERS: Emergency Provider Family Medicine; PCP Family Medicine
DX: T17.590A Other foreign object in bronchus causing asphyxiation, initial encounter (principal); J44.1 Chronic obstructive pulmonary disease with (acute) exacerbation
CPT/HCPCS: 36415; 71045; 80048; 82803; 83735; 83880; 84484; 85025; 85379; 86140; 87631; 93005; 94640; 94761; 96374; 99284; 99285; J2060; J7512

== ENCOUNTER 2022-11-14 09:59 | Outpatient (RCR) | payer MEDICAID, SELFPAY | END 2023-10-27 21:20 | disposition home or self-care (01) | LOC: MOW 09:59 | PROVIDERS: PCP Family Medicine; Visit Provider Family Medicine | DX: Z76.0 Encounter for issue of repeat prescription (principal) | CPT/HCPCS: S5170 ==

== ENCOUNTER 2022-11-14 13:07 | Outpatient (CLI) | payer MEDICARE, BC, MEDICAID, SELFPAY | END 2022-11-14 13:08 | disposition home or self-care (01) | LOC: AMB 11-16 09:44 | PROVIDERS: PCP Family Medicine; Visit Provider Family Medicine | DX: R06.09 Other forms of dyspnea (principal) | CPT/HCPCS: A0425; A0427 ==

== ENCOUNTER 2022-11-14 13:34 | Emergency (ER) | payer MEDICARE, BC, MEDICAID, SELFPAY ==
[2022-11-14] VITALS (11 sets, daily range): BP systolic 89–119; BP diastolic 60–78; PULSE 66–103; RESP 16; O2SAT 94–97; BMI 17.6
--- NOTE | 2022-11-14 14:17 | ED.NURSE ---
Contacted social work msw to notify them that patient has been to the ER 4 times in the last 2 weeks. They made a referral to the senior linkage line who will then notify his major case detective. computing services director will follow up tomorrow if patient is still here.
--- NOTE | 2022-11-14 15:00 | ED.NURSE ---
Verbal consent from patient granted for our child protective services social worker to reach out to his clinical case manager. Patients clinical case manager is Jin Palmer with [facility]. student financial services counselor will reach out and let him know patient has been to our ER 4 times in a week and to follow up with patient on increasing needs at home. Patient verbally stated that he is comfortable with this plan.
--- NOTE | 2022-11-14 15:11 | ED.GENADULT ---
HPI - General Adult General Chief complaint: Shortness of Breath/Dyspnea Stated complaint: Short of Breath Time Seen by Provider: 11/14/22 13:37 History of Present Illness HPI narrative: This 72-year-old comes in by ambulance because of an episode of shortness of breath prior to arrival. He was seen about 12 hours ago in this same emergency department for similar circumstances. Actually this is his 4th visit to the emergency department in the past couple weeks. He has COPD and is on oxygen at home. He also has nebulizer treatment and was placed on a steroid recently. He continues to smoke but states that he is intending to quit. He in his previous visit about 12 hours ago he had labs and imaging studies which showed no acute findings. He states that he got up from a table at home and his oximetry dropped temporarily. He felt some shortness of breath. He called the ambulance and was brought here. He states that his shortness of breath and hypoxia was rather transient. He states that he has been living in this apartment for the past 3 weeks and prior to this he was homeless. He states that he has a son that in the more distant past and his ex about a year ago. He had been staying at a home helping a woman who . He was welcome to stay there but 1 of the sons decided to cell the property so he was without a home. He states that he does have family in the area but they are not of much help for him. He reports that he has always been around people and he is a people person. In these past few weeks he has been at home alone in this scenario seems to be working poorly for him. He does have a casework manager. He does state that he starts to think why should I live anymore but does not have any specific plan to end his life. He does feel that it would be hopeful to have some better suited living arrangements for him. He states that he would feel okay going back home with something these plans in process. Related Data Home Medications Medication Instructions Recorded Confirmed albuterol sulfate 90 mcg/actuation inhalation 11/02/22 aerosol inhaler (Ventolin HFA) ipratropium 0.5 mg-albuterol 3 mg ml inhalation 11/02/22 (2.5 mg base)/3 mL nebulization soln tamsulosin 0.4 mg capsule mg PO 11/02/22 tiotropium 2.5 mcg-olodaterol 2.5 inhalation 11/02/22 mcg/actuation mist for inhalation (Stiolto Respimat) Previous Rx's Medication Instructions Recorded azithromycin 250 mg tablet See Rx Instructions PO .COMPLEX #6 11/03/22 (Zithromax Z-Bright) tabs prednisone 20 mg tablet 20 mg PO BID #10 tabs 11/03/22 albuterol sulfate 2.5 mg/0.5 mL 2.5 mg (0.5 mL) inhalation Q4H PRN 11/14/22 solution for nebulization shortness of breath or wheezing #30 ea ipratropium 0.5 mg-albuterol 3 mg 3 ml inhalation QID PRN #90 mL 11/14/22 (2.5 mg base)/3 mL nebulization soln prednisone 20 mg tablet 40 mg PO DAILY 5 days #10 tabs 11/14/22 Allergies Allergy/AdvReac Type Severity Reaction Status Date / Time No Known Drug Allergies Allergy Verified 11/14/22 13:52 Review of Systems Status of ROS: Reports: 10 or more systems reviewed and unremarkable except as noted in History and below Narrative: Constitutional: No fevers, no weight gain or loss. Eyes: No discharge. No vision changes. HENT: No congestion, no sore throat, no ear pain. Cardiovascular: No chest pain, no palpitations. Respiratory: Occasional cough. Shortness of breath at times with exertion. Gastrointestinal: No abdominal pain, no vomiting, no diarrhea. Genitourinary: No dysuria, no hematuria. Musculoskeletal: Normal range of motion. Skin: No rashes, no pruritis. Neurological: No dizziness, weakness, sensory change, speech change. Endo/Heme/Allergies: No bruising or bleeding. No polydipsia. Pysch: no insomnia. He reports loneliness and has some thoughts of ending his life but no specific plan. All other systems reviewed and are negative. [facility] Medical History BPH (benign prostatic hyperplasia) COPD (chronic obstructive pulmonary disease) Social History Smoking Status: Current every day smoker What tobacco products do you use: cigarettes Do you use any of these nicotine containing products: None Second hand tobacco smoke exposure: Yes How often do you have a drink containing alcohol: 2-3 times a week AUDIT-C Alcohol total score: 3 Non-prescribed substance use: denies use service: No Exam Narrative: Exam Narrative: Constitutional: Well-developed, well-nourished, no acute distress. HEENT: Normocephalic, atraumatic. Neck: Normal range of motion. Nontender. Supple. Heart: Regular. No murmurs. Normal rate. Intact distal pulses. Lungs: Clear to auscultation. No chest discomfort. No wheezes, rhonchi, or rales. Abdomen: Normal bowel sounds. Nontender. No rebound tenderness. Genitalia: Deferred. Back: No midline tenderness. Normal range of motion. Extremities: Normal range of motion. No injury. Skin: Intact. No rash. Warm. No erythema or pallor. Neurologic: No altered sensation. No weakness. Alert and oriented. Psychiatric: No insomnia. He reports feelings of loneliness. Nursing notes and vitals signs are reviewed. Const: Vital Signs, click to edit/add: Vital Signs - 24 hr 11/14/22 13:43 11/14/22 14:30 11/14/22 14:01 Pulse Rate 96 Pulse Rate [Pulse Oximeter] 84 Pulse Rate [orthos tatic lying] Pulse Rate [orthos tatic sitting] Pulse Rate [orthos tatic standing] Respiratory Rate 16 16 Blood Pressure Blood Pressure [Le ft Upper Arm] 108/73 Blood Pressure [or thostatic lying Le ft Arm] Blood Pressure [or thostatic sitting] Blood Pressure [or thostatic standing ] Pulse Oximetry 95 96 95 Oxygen Delivery Me thod Nasal Cannula Nasal Cannula Nasal Cannula Oxygen Flow Rate 4 2 11/14/22 14:02 11/14/22 14:20 11/14/22 14:21 Pulse Rate 83 77 75 Pulse Rate [Pulse Oximeter] Pulse Rate [orthos tatic lying] Pulse Rate [orthos tatic sitting] Pulse Rate [orthos tatic standing] Respiratory Rate 16 Blood Pressure 96/68 90/60 Blood Pressure [Le ft Upper Arm] Blood Pressure [or thostatic lying Le ft Arm] Blood Pressure [or thostatic sitting] Blood Pressure [or thostatic standing ] Pulse Oximetry 95 94 94 Oxygen Delivery Me thod Nasal Cannula Nasal Cannula Oxygen Flow Rate 2 2 11/14/22 14:40 11/14/22 14:41 11/14/22 15:00 Pulse Rate 74 81 80 Pulse Rate [Pulse Oximeter] Pulse Rate [orthos tatic lying] Pulse Rate [orthos tatic sitting] Pulse Rate [orthos tatic standing] Respiratory Rate 16 Blood Pressure 89/61 L Blood Pressure [Le ft Upper Arm] Blood Pressure [or thostatic lying Le ft Arm] Blood Pressure [or thostatic sitting] Blood Pressure [or thostatic standing ] Pulse Oximetry 96 97 96 Oxygen Delivery Me thod Nasal Cannula Room Air Oxygen Flow Rate 2 2 11/14/22 15:01 11/14/22 15:35 Pulse Rate 80 Pulse Rate [Pulse Oximeter] Pulse Rate [orthos tatic lying] 66 Pulse Rate [orthos tatic sitting] 89 Pulse Rate [orthos tatic standing] 103 H Respiratory Rate 16 Blood Pressure 103/64 Blood Pressure [Le ft Upper Arm] Blood Pressure [or thostatic lying Le ft Arm] 96/64 Blood Pressure [or thostatic sitting] 98/66 Blood Pressure [or thostatic standing ] 119/78 Pulse Oximetry 94 Oxygen Delivery Me thod Nasal Cannula Oxygen Flow Rate 2 Course Vital Signs Vital signs: Initial Vital Signs Pulse Rate 84 11/14/22 13:43 Respiratory Rate 16 11/14/22 13:43 Blood Pressure 108/73 11/14/22 13:43 Blood Pressure Mean 84 11/14/22 13:43 Blood Pressure Position Sitting 11/14/22 13:43 Pulse Oximetry 95 11/14/22 13:43 Oxygen Delivery Method 11/14/22 13:43 Oxygen Flow Rate 4 11/14/22 13:43 Vital Signs Pulse Rate 84 11/14/22 13:43 Respiratory Rate 16 11/14/22 13:43 Blood Pressure 108/73 11/14/22 13:43 Pulse Oximetry 95 11/14/22 13:43 Oxygen Delivery Method 11/14/22 13:43 Oxygen Flow Rate 4 11/14/22 13:43 Pulse Rate 66 11/14/22 15:35 Respiratory Rate 16 11/14/22 15:01 Blood Pressure 96/64 11/14/22 15:35 Pulse Oximetry 94 11/14/22 15:01 Oxygen Delivery Method 11/14/22 15:01 Oxygen Flow Rate 2 11/14/22 15:01 Medical Decision Making MDM Narrative Medical decision making narrative: This patient returns after being seen here about 12 hours earlier. His returned was related to an episode of shortness of breath but he also reports feeling lonely at his residence and thinks that these circumstances are not working well with him. He is maintaining normal vital signs. Orthostatic vital signs also are within normal range. He has oxygen at home along with appropriate medications for breathing. There is no need for him to be admitted into the hospital. He states that he is okay with returning home if he had a plan and process regarding his living circumstances. He does have a casework manager and the social services director here made connection with the casework manager to generate a review of his current circumstances. The patient did receive a meal here and is maintaining normal vital signs. He is okay to be discharged home and is agreeable with this plan. Discharge Plan Discharge Clinical Impression: Acute exacerbation of chronic obstructive pulmonary disease Patient Disposition: Home, Self-Care Condition: Stable Additional Instructions: Follow-up with plans of arranged by casework manager. Use medications as indicated and needed for breathing. Follow up with MD or return if worsening. Prescriptions: No Action ipratropium-albuterol 0.5 mg-3 mg(2.5 mg base)/3 mL solution for nebulization INHALATION Label Comments: INHALE 3 ML VIA A NEBULIZER FOUR TIMES A DAY tamsulosin 0.4 mg capsule PO Label Comments: TAKE ONE CAPSULE BY MOUTH EVERY DAY AFTER A MEAL albuterol sulfate [Ventolin HFA] 90 mcg/actuation HFA aerosol inhaler INHALATION Label Comments: INHALE TWO PUFFS BY MOUTH EVERY 6 HOURS NEEDED FOR SHORTNESS OF BREATH 1ST CHOICE Stiolto Respimat 2.5-2.5 mcg/actuation mist INHALATION Label Comments: INHALE TWO PUFFS BY MOUTH EVERY DAY prednisone 20 mg tablet 20 mg PO BID Qty: 10 0RF azithromycin [Zithromax Z-Bright] 250 mg tablet See Rx Instructions .ROUTE .COMPLEX Qty: 6 0RF Rx Instructions: For 250 mg dose pack: take 500 mg today (day 1), then 250 mg for 4 days (days 2-5) ipratropium-albuterol 0.5 mg-3 mg(2.5 mg base)/3 mL solution for nebulization 3 ml inhalation QID PRNQty: 90 0RF prednisone 20 mg tablet 40 mg PO DAILY 5 Days Qty: 10 1RF albuterol sulfate 2.5 mg/0.5 mL solution for nebulization 2.5 mg inhalation Q4H PRN (Reason: shortness of breath or wheezing) Qty: 30 0RF Follow Up/Referrals: Humberto Breen MD [Primary Care Provider] - Stand Alone Forms: [employer] Info Instructions
--- NOTE | 2022-11-14 16:16 | PC.SOCIAL ---
Pt. recently moved to [facility] apartments and has been to the ER 4x in the past two weeks for SOB. Pt. is wanting to move to a different facility for more assistance. Checked to see if [facility] [employer] [facility] had availability on pt.'s route and the route is currently full. Obtained verbal consent to talk to pt.'s [employer] worker. Left a message with RENATO Huynh at [facility] requesting he contact pt. to work on a different option for living. Also made a referral to the [facility] for assistance in the home, support, and different housing options.
--- NOTE | 2022-11-14 16:43 | ED.NURSE ---
bed request sent
--- NOTE | 2022-11-14 17:18 | ED.NURSE ---
Spoke with patients Brother Gene with patients verbal permission regarding discharge plan. His brother is planning to pick him up from the ER with his medications and take him back to his apartment. He will ensure that a family member follows up with patient rgarding primary care follow up. Social work has reached out to [facility] and they can add to list for saturday start. Raiza also reached out to [facility] case operator to let them know of hospitalization and need for continued assessment for placement.
== END 2022-11-14 17:34 | disposition home or self-care (01) ==
PROVIDERS: Emergency Provider Emergency Medicine Emergency Medical Services; PCP Family Medicine
DX: J44.1 Chronic obstructive pulmonary disease with (acute) exacerbation (principal)
CPT/HCPCS: 99284; 99285

== ENCOUNTER 2022-11-20 13:30 | Outpatient (CLI) | payer MEDICARE, BC, MEDICAID, SELFPAY | END 2022-11-20 13:31 | disposition home or self-care (01) | LOC: AMB 11-22 10:59 | PROVIDERS: PCP Family Medicine; Visit Provider Emergency Medicine | DX: R06.09 Other forms of dyspnea (principal) | CPT/HCPCS: A0425; A0427 ==

== ENCOUNTER 2022-11-20 13:52 | Observation (INO) | payer MEDICARE, BC, MEDICAID, SELFPAY ==
[2022-11-20] VITALS (7 sets, daily range): BP systolic 94–125; BP diastolic 66–90; PULSE 81–99; RESP 18–24; TEMP 36.4–37.2; O2SAT 91–96; BMI 17.7
--- NOTE | 2022-11-20 14:04 | CRLHL7_ITS ---
For Patients: As a result of the Cures Act, medical imaging exams and procedure reports are released immediately into your electronic medical record. You may view this report before your referring provider. If you have questions, please contact your health care provider. INDICATION: Shortness of breath. TECHNIQUE: Two views of the chest. COMPARISON: November 14, 2022. FINDINGS: Hyperinflation. Attenuation of the pulmonary vascularity. Emphysematous type change. No pneumothorax. No focal or diffuse infiltrate. Normal heart size. No pleural effusions. Anterior wedging of approximately T7 unchanged compared to November 02, 2022. IMPRESSION: Emphysematous type change. No acute cardiopulmonary process identified. Dictated by Willard Sauceda MD @ 11/20/2022 2:43:34 PM (Electronically Signed)
[2022-11-20] MEDS: ALBUTEROL SULFATE 2.5 MG/3 ML VIAL.NEB NEB (14:14)
[2022-11-20 14:28] LABS: Basophils Absolute Auto 0.03 K/uL (0.00-0.30); Basophils Percent Auto 0.4 % (0.0-3.0); Eosinophils Absolute Auto 0.49 K/uL (0.00-0.50); Eosinophils Percent Auto 6.2 % (0.0-7.0); Hematocrit 44.9 % (37.0-53.0); Hemoglobin* 14.4 gm/dL (13.5-17.5); Lymphocytes Absolute Auto 2.36 K/uL (0.90-2.90); Lymphocytes Percent Auto 29.8 % (20-44); Mean Corpuscular HGB Conc 32 gm/dL (32-36); Mean Corpuscular Hemoglobin 30 pg (26-34); Mean Corpuscular Volume 95 fL (80-100); Monocytes Percent Auto 4.8 % (0.0-11.0); Neutrophils Absolute Auto 4.67 K/uL (1.7-7.0); Neutrophils Percent Auto 58.8 % (42.0-72.0); Platelet Count* 160 K/uL (140-440); RDW Coefficient of Variation % 13.5 % (11.5-15.5); Red Blood Count 4.73 m/uL (4.30-5.90); White Blood Count* 7.93 K/uL (4.50-11.00)
--- NOTE | 2022-11-20 14:28 | ED_ITS ---
HPI - SOB/Dyspnea General Date Seen: 11/20/22 Chief Complaint: Shortness of Breath/Dyspnea Stated Complaint: Difficulty breathing Time Seen by Provider: 11/20/22 14:01 Source: patient and EMS Mode of arrival: EMS Limitations: no limitations History of Present Illness HPI Narrative: Patient is a 72-year-old gentleman who presents here with a COPD exacerbation shortness of breath for the last 24-48 hours, brought in by EMS, given DuoNeb on the way in, and feeling better after DuoNeb saturations at home were in the 90- 92% range. He is a smoker, was here apparently last week I have not had a chance to review that chart yet. For similar concerns, was told to stop smoking at that time but of continued on smoking. Denies any significant chest pain associated with this, leg swelling, COVID symptoms, fevers chills sweats, nausea vomiting, associated with this. Related Data Home oxygen amount: none Home Medications Medication Instructions Recorded Confirmed albuterol sulfate 90 mcg/actuation inhalation 11/02/22 aerosol inhaler (Ventolin HFA) ipratropium 0.5 mg-albuterol 3 mg ml inhalation 11/02/22 (2.5 mg base)/3 mL nebulization soln tamsulosin 0.4 mg capsule mg PO 11/02/22 tiotropium 2.5 mcg-olodaterol 2.5 inhalation 11/02/22 mcg/actuation mist for inhalation (Stiolto Respimat) Previous Rx's Medication Instructions Recorded azithromycin 250 mg tablet See Rx Instructions PO .COMPLEX #6 11/03/22 (Zithromax Z-Bright) tabs prednisone 20 mg tablet 20 mg PO BID #10 tabs 11/03/22 albuterol sulfate 2.5 mg/0.5 mL 2.5 mg (0.5 mL) inhalation Q4H PRN 11/14/22 solution for nebulization shortness of breath or wheezing #30 ea ipratropium 0.5 mg-albuterol 3 mg 3 ml inhalation QID PRN #90 mL 11/14/22 (2.5 mg base)/3 mL nebulization soln prednisone 20 mg tablet 40 mg PO DAILY 5 days #10 tabs 11/14/22 Allergies Allergy/AdvReac Type Severity Reaction Status Date / Time No Known Drug Allergies Allergy Verified 11/14/22 13:52 Review of Systems Status of ROS: Reports: 10 or more systems reviewed and unremarkable except as noted in History and below [facility] Medical History BPH (benign prostatic hyperplasia) COPD (chronic obstructive pulmonary disease) Social History Smoking Status: Current every day smoker What tobacco products do you use: cigarettes Do you use any of these nicotine containing products: None Second hand tobacco smoke exposure: Yes How often do you have a drink containing alcohol: 2-3 times a week AUDIT-C Alcohol total score: 3 Non-prescribed substance use: denies use service: No Exam Narrative: Exam Narrative: Tall thin gentleman is seen in room 7, he is speaking to me in full sentences, vital signs are really agreeable on the monitor. Pupils equal round reactive to light there is no scleral icterus redness TMs are normal oropharynx is normal neck is supple full range of motion JVP is flat. Chest is poor air entry bilaterally with prolonged expiratory phase, no signs respiratory distress in occasional wheezes are noted on expiration, heart sounds no clicks murmurs or gallops there is no notable murmurs. Abdomen is soft and scaphoid there is no guarding no organomegaly, no tenderness to palpation, no CVA tenderness noted back is nontender. Throughout lumbar thoracic region. His lower extremities reveal no swelling pitting edema. Const: Vital Signs, click to edit/add: Vital Signs - 24 hr 11/20/22 14:04 11/20/22 14:35 11/20/22 14:36 Temperature 98.9 F Pulse Rate 81 83 Pulse Rate [Pulse Oximeter] 99 Respiratory Rate 20 Blood Pressure 120/77 Blood Pressure [Le ft Upper Arm] 125/88 Pulse Oximetry 94 92 93 Oxygen Delivery Me thod Room Air Nasal Cannula Oxygen Flow Rate 2 11/20/22 14:45 Temperature Pulse Rate 85 Pulse Rate [Pulse Oximeter] Respiratory Rate Blood Pressure Blood Pressure [Le ft Upper Arm] Pulse Oximetry 92 Oxygen Delivery Me thod Oxygen Flow Rate Course Course Hospital Course: Discussed with the patient, at this point we can send him home, been admitted to the hospital for a COPD exacerbation, I discussed this with the hospital provider Dr. Olivares. She accepted him. Vital Signs Vital signs: Initial Vital Signs Temperature 98.9 F 11/20/22 14:04 Temperature Source Temporal Artery Scan 11/20/22 14:04 Pulse Rate 99 11/20/22 14:04 Pulse Rhythm 11/20/22 14:04 Respiratory Rate 20 11/20/22 14:04 Blood Pressure 125/88 11/20/22 14:04 Blood Pressure Mean 100 11/20/22 14:04 Blood Pressure Position Supine 11/20/22 14:04 Pulse Oximetry 94 11/20/22 14:04 Oxygen Delivery Method 11/20/22 14:04 Vital Signs Temperature 98.9 F 11/20/22 14:04 Pulse Rate 99 11/20/22 14:04 Respiratory Rate 20 11/20/22 14:04 Blood Pressure 125/88 11/20/22 14:04 Pulse Oximetry 94 11/20/22 14:04 Oxygen Delivery Method 11/20/22 14:04 Temperature 98.9 F 11/20/22 14:04 Pulse Rate 85 11/20/22 14:45 Respiratory Rate 20 11/20/22 14:04 Blood Pressure 120/77 11/20/22 14:36 Pulse Oximetry 92 11/20/22 14:45 Oxygen Delivery Method 11/20/22 14:36 Oxygen Flow Rate 2 11/20/22 14:36 MDM - SOB/Dyspnea MDM Narrative Medical decision making narrative: Life-threatening differential diagnosis includes occluded COPD exacerbation, pul monary edema, acute coronary syndromes, pulmonary embolism, pneumonia, and pneumothorax. Other differential diagnosis considerations include asthma, bronchitis as well as other etiologies Differential Diagnosis Differential diagnosis: Likely acute exacerbation of chronic obstructive airways disease, congestive heart failure, community acquired pneumonia, asthma with exacerbation and pulmonary embolism Medical Records Attestation: I reviewed the patient's medical records. Lab Data Attestation: I reviewed the patient's lab results. Labs: Lab Results 11/20/22 11/20/22 11/20/22 Range/Units 14:05 14:05 14:18 WBC 7.93 (4.50-11.00) K/uL RBC 4.73 (4.30-5.90) m/uL Hgb 14.4 (13.5-17.5) gm/dL Hct 44.9 (37.0-53.0) % MCV 95 (80-100) fL MCH 30 (26-34) pg MCHC 32 (32-36) gm/dL RDW Coeff of Odalis 13.5 (11.5-15.5) % Plt Count 160 (140-440) K/uL Neut % (Auto) 58.8 (42.0-72.0) % Lymph % (Auto) 29.8 (20-44) % [place] % (Auto) 4.8 (0.0-11.0) % Eos % (Auto) 6.2 (0.0-7.0) % Baso % (Auto) 0.4 (0.0-3.0) % Neut # (Auto) 4.67 (1.7-7.0) K/uL Lymph # (Auto) 2.36 (0.90-2.90) K/uL [place] # (Auto) 0.40 (0.00-0.90) K/UL Eos # (Auto) 0.49 (0.00-0.50) K/uL Baso # (Auto) 0.03 (0.00-0.30) K/uL INR (0.91-1.10) APTT (23-33) Seconds D-Dimer Quant (PE/DVT) (0.00-0.50) ug/ml Sodium (135-149) mmol/L Potassium (3.6-5.1) mmol/L Chloride (96-114) mmol/L Carbon Dioxide (20-32) mmol/L BUN (7-30) mg/dL Creatinine (0.5-1.5) mg/dL Estimated GFR ml/min Glucose (60-115) mg/dL Calcium (8.4-10.6) mg/dL C-Reactive Protein (0.5-1.0) mg/dL NT-Pro-B Natriuret Pep pg/mL SARS-CoV-2 (PCR) Negative SARS-CoV-2 (Negative) Influenza Type A (PCR) Negative PCR FLU A (Negative) Influenza Type B (PCR) Negative PCR FLU B (Negative) RSV (PCR) Negative PCR RSV (Negative) POC Troponin I 0.00 L (0.01-0.04) ng/ml 11/20/22 11/20/22 Range/Units 14:18 14:18 WBC (4.50-11.00) K/uL RBC (4.30-5.90) m/uL Hgb (13.5-17.5) gm/dL Hct (37.0-53.0) % MCV (80-100) fL MCH (26-34) pg MCHC (32-36) gm/dL RDW Coeff of Odalis (11.5-15.5) % Plt Count (140-440) K/uL Neut % (Auto) (42.0-72.0) % Lymph % (Auto) (20-44) % [place] % (Auto) (0.0-11.0) % Eos % (Auto) (0.0-7.0) % Baso % (Auto) (0.0-3.0) % Neut # (Auto) (1.7-7.0) K/uL Lymph # (Auto) (0.90-2.90) K/uL [place] # (Auto) (0.00-0.90) K/UL Eos # (Auto) (0.00-0.50) K/uL Baso # (Auto) (0.00-0.30) K/uL INR 0.95 (0.91-1.10) APTT 31 (23-33) Seconds D-Dimer Quant (PE/DVT) < 0.27 (0.00-0.50) ug/ml Sodium 139 (135-149) mmol/L Potassium 3.8 (3.6-5.1) mmol/L Chloride 103 (96-114) mmol/L Carbon Dioxide 32 (20-32) mmol/L BUN 15 (7-30) mg/dL Creatinine 0.6 (0.5-1.5) mg/dL Estimated GFR 102 ml/min Glucose 105 (60-115) mg/dL Calcium 9.2 (8.4-10.6) mg/dL C-Reactive Protein < 0.5 L (0.5-1.0) mg/dL NT-Pro-B Natriuret Pep 110 pg/mL SARS-CoV-2 (PCR) (Negative) Influenza Type A (PCR) (Negative) Influenza Type B (PCR) (Negative) RSV (PCR) (Negative) POC Troponin I (0.01-0.04) ng/ml ABG Data Attestation: I personally reviewed and interpreted this ABG as follows: Discharge Plan Discharge Clinical Impression: Anxiety, Tobacco use disorder, Acute exacerbation of chronic obstructive pulmonary disease Patient Disposition: Admitted As Inpatient Prescriptions: No Action ipratropium-albuterol 0.5 mg-3 mg(2.5 mg base)/3 mL solution for nebulization INHALATION Label Comments: INHALE 3 ML VIA A NEBULIZER FOUR TIMES A DAY tamsulosin 0.4 mg capsule PO Label Comments: TAKE ONE CAPSULE BY MOUTH EVERY DAY AFTER A MEAL albuterol sulfate [Ventolin HFA] 90 mcg/actuation HFA aerosol inhaler INHALATION Label Comments: INHALE TWO PUFFS BY MOUTH EVERY 6 HOURS NEEDED FOR SHORTNESS OF BREATH 1ST CHOICE Stiolto Respimat 2.5-2.5 mcg/actuation mist INHALATION Label Comments: INHALE TWO PUFFS BY MOUTH EVERY DAY prednisone 20 mg tablet 20 mg PO BID Qty: 10 0RF azithromycin [Zithromax Z-Bright] 250 mg tablet See Rx Instructions .ROUTE .COMPLEX Qty: 6 0RF Rx Instructions: For 250 mg dose pack: take 500 mg today (day 1), then 250 mg for 4 days (days 2-5) ipratropium-albuterol 0.5 mg-3 mg(2.5 mg base)/3 mL solution for nebulization 3 ml inhalation QID PRNQty: 90 0RF prednisone 20 mg tablet 40 mg PO DAILY 5 Days Qty: 10 1RF albuterol sulfate 2.5 mg/0.5 mL solution for nebulization 2.5 mg inhalation Q4H PRN (Reason: shortness of breath or wheezing) Qty: 30 0RF Follow Up/Referrals: Humberto Breen MD [Primary Care Provider] -
[2022-11-20 14:37] LABS: Slide Review Reflex No
[2022-11-20 14:45] LABS: INR 0.95 (0.91-1.10); Prothrombin Time 13.3 Seconds
--- NOTE | 2022-11-20 14:45 | PC.NURSE ---
Message left for social work. Patient stated he doesn't feel he is safe at home managing his cares. Feels he may need more help. When patient was here last week, a social service consult was placed and had reached out to patients case work.
[2022-11-20 14:46] LABS: Partial Thromboplastin Time* 31 Seconds (23-33)
[2022-11-20 14:55] LABS: D Dimer Quantitative* < 0.27 ug/ml (0.00-0.50)
[2022-11-20 15:03] LABS: PCR FLU A Negative PCR FLU A (Negative); PCR FLU B Negative PCR FLU B (Negative); PCR RSV Negative PCR RSV (Negative)
[2022-11-20 15:04] LABS: SARS PCR* Negative SARS-CoV-2 (Negative)
[2022-11-20 15:04] LABS: Chloride* 103 mmol/L (96-114); Sodium* 139 mmol/L (135-149)
[2022-11-20 15:06] LABS: Creatinine* 0.6 mg/dL (0.5-1.5); Estimated Glomerular Filt Rate 102 ml/min
[2022-11-20 15:07] LABS: Blood Urea Nitrogen* 15 mg/dL (7-30); Carbon Dioxide* 32 mmol/L (20-32); Glucose* 105 mg/dL (60-115)
[2022-11-20 15:08] LABS: Calcium* 9.2 mg/dL (8.4-10.6)
[2022-11-20 15:16] LABS: NT Pro B Type NatriureticPept* 110 pg/mL
[2022-11-20 15:17] LABS: C Reactive Protein* < 0.5 mg/dL (0.5-1.0)
--- NOTE | 2022-11-20 16:20 | PC.SOCIAL ---
Social work: Met with pt who was at the ED last week. Confirmed with pt that he has been contacted by both his [facility] social insurance specialist and the [employer] since last visit, as requested by social insurance specialist. Pt shared that his [facility] social insurance specialist is working on a plan for him to either move into another facility or secure more assistance at home. Pt to follow up with [facility] social insurance specialist as needed.
[2022-11-20 16:36] LABS: Potassium* 3.8 mmol/L (3.6-5.1)
[2022-11-20] MEDS: METHYLPREDNISOLONE SOD SUCC 62.5 MG/ML (125) 125 MG IVP ×2 (17:22→23:09)
[2022-11-20] MEDS: IPRAT-ALBUT 0.5-2.5 MG/3 ML NEB 1 NEB IH (17:23)
--- NOTE | 2022-11-20 18:29 | ED.NURSE ---
Pt admitted to [facility] upstairs to [facility], room 249. Report given to [facility] nurse, pt transferred with all his belongings at this time. Pt refusing to get into a gown, he wants to wear his own clothes.
--- NOTE | 2022-11-20 20:22 | P.IMHP_ITS ---
Hospitalist- H&P: HPI History of Present Illness Time Seen by Provider: 19:00 Date Seen: 11/20/22 Chief complaint: Difficulty breathing Narrative: Bebeto De Leon is a 72 year old male who has been seen 5 times in the emergency department this month alone for COPD exacerbations. He is oxygen dependent wearing 2.5 liters/minute via nasal cannula with rest and 3 liters/minute via nasal cannula with activity. He tells me that he felt worse again last night with increased work of breathing and it did not go away by this morning so he came to the emergency department. He denies any fevers or chills. He remains on prednisone taper that was started from his last ER visit 11/14/2022. His last visit with his primary care provider was after a hospitalization for COPD exacerbation 2 and half months ago. Review of Systems Status of ROS: Reports: 10 or more systems reviewed and unremarkable except as noted in History and below [facility] Medical History (Updated 11/20/22 @ 20:33 by Maribell Olivares MD) Acute urinary retention Bilateral sensorineural hearing loss BPH (benign prostatic hyperplasia) Chronic sinusitis Clostridioides difficile infection (12/07/15) Constipation COPD (chronic obstructive pulmonary disease) Femur fracture Hyperlipidemia Mucus plugging of bronchi Pneumonia (~1995) Surgical History (Updated 11/20/22 @ 20:31 by Maribell Olivares MD) Hx of colonoscopy (02/28/09) Hx of inguinal herniorrhaphy (11/24/19) Family History (Updated 11/20/22 @ 20:34 by Maribell Olivares MD) Mother Breast cancer Grandfather Stroke Social History (Updated 11/20/22 @ 20:35 by Maribell Olivares MD) Narrative: Lives in an apartment. Smokes 1/4 PPD. Denies EtOH. Denies recreational drugs. DNR/DNI. Smoking Status: Current every day smoker What tobacco products do you use: cigarettes Do you use any of these nicotine containing products: None Second hand tobacco smoke exposure: Yes How often do you have a drink containing alcohol: 2-3 times a week AUDIT-C Alcohol total score: 3 Non-prescribed substance use: denies use service: No Meds Home Medications and Allergies Home Medications Medication Instructions Recorded Confirmed Type albuterol sulfate 90 mcg/actuation 2 inh inhalation Q4H PRN shortness 11/02/22 11/20/22 History aerosol inhaler (Ventolin HFA) of breath or wheezing ipratropium 0.5 mg-albuterol 3 mg ml inhalation 11/02/22 History (2.5 mg base)/3 mL nebulization soln tamsulosin 0.4 mg capsule 0.4 mg PO HS 11/02/22 11/20/22 History tiotropium 2.5 mcg-olodaterol 2.5 2 inh inhalation Q24H 11/02/22 11/20/22 H istory mcg/actuation mist for inhalation (Stiolto Respimat) Allergies Allergy/AdvReac Type Severity Reaction Status Date / Time No Known Drug Allergies Allergy Verified 11/14/22 13:52 Exam Narrative: Exam Narrative: General: Extremely thin with generalized muscle loss. Sleeping, arouses to name, will open eyes to command. Oriented x3. No acute distress. HEENT: Normocephalic atraumatic, pupils equally round and reactive to light and accommodation. Oropharynx clear. Mucous membranes are slightly dry. No cervical lymphadenopathy, thyromegaly or carotid bruits. No JVD. Cardiovascular: Regular rate and rhythm. No murmurs, gallops, or rubs. Chest: Cigarettes box in his shirt pocket. No increased work of breathing. Expiratory wheezes throughout. No crackles. Abdomen: Bowel sounds present. Very thin. Soft, nondistended, nontender. No hepatosplenomegaly or masses. Extremities: No edema, no cyanosis or clubbing. Skin: No jaundice, no pallor, no rashes. Const: Vital Signs, click to edit/add: Vital Signs - 24 hr 11/20/22 14:04 11/20/22 14:35 11/20/22 14:36 Temperature 98.9 F Pulse Rate 81 83 Pulse Rate [Left P ulse Oximeter] Pulse Rate [Pulse Oximeter] 99 Respiratory Rate 20 Blood Pressure 120/77 Blood Pressure [Le ft Arm] Blood Pressure [Le ft Upper Arm] 125/88 Pulse Oximetry 94 92 93 Oxygen Delivery Me thod Room Air Nasal Cannula Oxygen Flow Rate 2 11/20/22 14:45 11/20/22 18:42 Temperature 97.6 F Pulse Rate 85 Pulse Rate [Left P ulse Oximeter] 94 Pulse Rate [Pulse Oximeter] Respiratory Rate 24 Blood Pressure Blood Pressure [Le ft Arm] 107/90 H Blood Pressure [Le ft Upper Arm] Pulse Oximetry 92 96 Oxygen Delivery Me thod Nasal Cannula Oxygen Flow Rate 2 Hospitalist - H&P: Result Labs Labs: Short CBC 11/20/22 Range/Units 14:18 WBC 7.93 (4.50-11.00) K/uL Hgb 14.4 (13.5-17.5) gm/dL Hct 44.9 (37.0-53.0) % Plt Count 160 (140-440) K/uL BMP 11/20/22 14:18 Sodium 139 Potassium 3.8 Chloride 103 Carbon Dioxide 32 BUN 15 Creatinine 0.6 Glucose 105 Calcium 9.2 Ordering Physician: Mikey Wheeler M.D. Date of Service: 11/20/22 Procedure(s): XR chest 2V Accession Number(s): [id number] cc: Mikey Wheeler M.D.; Humberto Breen M.D.~ For Patients: As a result of the Cures Act, medical imaging exams and procedure reports are released immediately into your electronic medical record. You may view this report before your referring provider. If you have questions, please contact your health care provider. INDICATION: Shortness of breath. TECHNIQUE: Two views of the chest. COMPARISON: November 14, 2022. FINDINGS: Hyperinflation. Attenuation of the pulmonary vascularity. Emphysematous type change. No pneumothorax. No focal or diffuse infiltrate. Normal heart size. No pleural effusions. Anterior wedging of approximately T7 unchanged compared to November 02, 2022. IMPRESSION: Emphysematous type change. No acute cardiopulmonary process identified. Dictated by Willard Sauceda MD @ 11/20/2022 2:43:34 PM (Electronically Signed) Assessment and Plan Assessment and plan (1) Acute and chronic respiratory failure: Status: Acute (2) Acute exacerbation of chronic obstructive pulmonary disease: Status: Acute (3) Protein-calorie malnutrition, severe: Status: Acute (4) Tobacco use disorder: Status: Acute Plan This is a 72-year-old male with oxygen-dependent COPD who has an exacerbation of the same. This was his 5th ER visit of the month for COPD exacerbation. Imaged admitting him overnight for observation and to continue treatment with steroids, albuterol and ipratropium nebs, oxygen via nasal cannula, and I think he would benefit from an antibiotic at this point for COPD. He has no known history of pseudomonal infection and no risk factors for Pseudomonas at this time, although he has been on prednisone or other steroids quite a bit this month. So I will start him on Augmentin. He is very cachectic and appears to have severe protein calorie malnutrition as well. This is possibly multifactorial, but I suspect mostly secondary to severe COPD. Continues to smoke despite multiple COPD exacerbations this month. Patient is not ready to quit yet.
[2022-11-20] MEDS: SODIUM CHLORIDE 0.9 % (FLUSH) 10 ML SYRINGE 5 ML IVF (21:28)
[2022-11-20] MEDS: TAMSULOSIN HCL 0.4 MG CAPSULE PO (21:28)
[2022-11-20] MEDS: ACETAMINOPHEN 325 MG TABLET 650 MG PO (21:28)
[2022-11-20] MEDS: NICOTINE 7 MG PATCH 1 PATCH TRANSDERMA (21:29)
[2022-11-20] MEDS: AMOXICILLIN/CLAVULANATE 500 mg/125 mg TABLET PO (21:31)
--- NOTE | 2022-11-20 23:09 | PC.NURSE ---
End of Shift: Patient pleasant and cooperative. Afebrile. O2 sats greater than 88% on 1-2L NC. SOB with any activity. Using urinal at bedside with SBA. Tolerating regular diet with no nausea. PRN Tylenol x1 for c/o headache. Declined to change in to a gown or scrub pants, declined skin check, denies any skin issues.
[2022-11-21 02:38] VITALS: PULSE 63; RESP 18; O2SAT 94
[2022-11-21] MEDS: IPRAT-ALBUT 0.5-2.5 MG/3 ML NEB 1 NEB IH ×2 (02:59→06:32)
--- NOTE | 2022-11-21 06:48 | PC.NURSE ---
-: pt slept throughout the shift. Tapered pt to RA,?maintaining sats in the low 90s. SOB with exertion, pt desat to high 80s while standing to use the urinal, pt rebounded quickly.?Moist productive cough, exp rhonchi auscultated, Duo Neb given x 2, encouraged deep breathing exercises. Pt able to cough up thick yellow sputum occasionally. Pt stated he is feeling better and that ?i no longer feel a weight on my chest?. ?
[2022-11-21 07:00] VITALS: BP 94/52; PULSE 89; RESP 24; TEMP 36.6; O2SAT 92
[2022-11-21] MEDS: predniSONE 20 MG TABLET 60 MG PO (08:38)
[2022-11-21] MEDS: SODIUM CHLORIDE 0.9 % (FLUSH) 10 ML SYRINGE 5 ML IVF (08:39)
[2022-11-21] MEDS: AMOXICILLIN/CLAVULANATE 500 mg/125 mg TABLET PO ×3 (08:39→18:14)
[2022-11-21 09:04] VITALS: BMI 17.6
--- NOTE | 2022-11-21 09:38 | CRLHL7_ITS ---
For Patients: As a result of the Century Cures Act, medical imaging exams and procedure reports are released immediately into your electronic medical record. You may view this report before your referring provider. If you have questions, please contact your health care provider. INDICATION: Chronic obstructive pulmonary disease, severe hypoxia. TECHNIQUE: CT chest PE was acquired with 95 cc Isovue 370 intravenous contrast. COMPARISON: None. FINDINGS: Heart and vasculature: Contrast opacification of the pulmonary arterial tree is adequate. No sign of pulmonary embolism. Thoracic aorta is normal in caliber with mild atherosclerotic calcification. Subjectively severe coronary atherosclerosis. Trace pericardial fluid loculated anteriorly. Lungs and pleural: No pleural effusion or pneumothorax. Severe centrilobular emphysema. Calcified granuloma right lower lobe. Mild bilateral lower lobe bronchiectasis. Some bronchial wall thickening within the bilateral lower lobes with endobronchial debris and some distal discoid atelectasis. Lymph nodes/mediastinum: No mediastinal, hilar, or axillary adenopathy. Chest wall: No masses. Upper abdomen: Left renal cyst. Bones: Old T7 compression fracture. IMPRESSION: 1. No evidence of pulmonary embolus. 2. Severe centrilobular emphysema. 3. Mild bronchiectasis bilateral lower lobes with some endobronchial thickening which can be seen in bronchitis. Endobronchial debris in the bilateral lower lobes, likely mucus with distal discoid atelectasis. 4. Old granulomatous disease. Please note that all CT scans at this facility use dose modulation, iterative reconstruction, and/or weight-based dosing when appropriate to reduce radiation dose to as low as reasonably achievable. Dictated by Stevenson Parks MD @ 11/21/2022 11:22:25 AM (Electronically Signed)
--- NOTE | 2022-11-21 10:10 | P.IMPN_ITS ---
Progress Note: A&P Assessment and plan (1) Acute exacerbation of chronic obstructive pulmonary disease: Problem details: Started on Augmentin yesterday. He received 1 dose of IV steroids. He is also now on p.o. prednisone at 60 mg daily. He had previously been on a prednisone burst and taper and we are setting that as of this morning. Will continue pulmonary hygiene/rehab. He is on Stiolto Respimat daily (LABA/LAMA) and DuoNeb (OTTO, APRYL) at home. we can continue DuoNeb here and start Pulmicort nebs. We can use his home stiolto if it can be obtained. Status: Acute (2) Acute and chronic respiratory failure: Problem details: Mild hypercapnia noted earlier this month on venous blood gas. I will update his arterial blood gas to assess this. oxygen dependent. CT demonstrates findings of severe COPD, bronchiectasis, mucous plugging and atelectasis. Is appropriate for his COPD COPD to assess his appropriateness for hospice referral is necessary and requested by the patient. Status: Acute (3) Stage 4 very severe COPD by GOLD classification: Problem details: PFTS @ [facility]: 02/06/2021 Study adequacy: The study is technically adequate. IMPRESSION: Very severe airflow obstruction Partial reversibility, does not meet ATS criteria for responsiveness No restriction, hyperinflation and air trapping, severe, RV 194% Diffusion is severely impaired Spirometry: FVC is 2.96 L which is 64% of predicted. FEV1 is 1.02 L which is 29% of predicted. FEV1/FVC is 34 with a predicted of 75. FEV1 changes by 112 ml (12 %) which is not a significant improvement by ATS criteria Lung volumes: TLC is 8.05 L which is 105% of predicted. Diffusion: DLCOcor is 6.66 which is 23% of predicted. By all standards/classifications, Bebeto has the most severe ratings on this COPD. This is according to ATS and GOLD guidelines. Last measurements were 02/15. However, his renal function is normal. His electrolytes are normal. And he is not in CO2 retention chronically. Status: Acute (4) Tobacco use disorder: Problem details: Ongoing. nicotine replacement offered. Status: Acute (5) Protein-calorie malnutrition, severe: Problem details: Poor appetite secondary to chronic dyspnea and COPD recurrent exacerbations. Status: Acute (6) Anxiety: Problem details: [id number], starting zoloft 11/21/22 Status: Acute Subjective Date Seen: 11/21/22 Interval history: Daily Progress Note - Hospital Medicine Day #: 2 CC: COPD exacerbation OVERNIGHT UPDATES FROM STAFF & MED, LAB, IMAGING UPDATES SLIM was stable overnight. He remains on oxygen. His 1-2 L by nasal cannula keep his sats between 85 and 92%. Blood pressures been soft with systolics in the 90s up to 107. His pulse has been in the 80s and regular. He has been afebrile. He had a full breakfast tray this morning. He appears mildly disheveled. He states over the last month he has had significant decline in his respiratory function. He said even getting up from the couch to the kitchen his saturations go weight down. He is continuing to smoke, however he states he has felt so poorly he has not really had BM [place] or desire. CTA today: IMPRESSION: 1. No evidence of pulmonary embolus. 2. Severe centrilobular emphysema. 3. Mild bronchiectasis bilateral lower lobes with some endobronchial thickening which can be seen in bronchitis. Endobronchial debris in the bilateral lower lobes, likely mucus with distal discoid atelectasis. 4. Old granulomatous disease. Echo pending. Objective: Calm, disheveled, cachectic appearing Vitals: see above Lungs: Rhonchi bilaterally Cardiac: S1S2. No harsh murmurs Disposition/Potential discharge - Likely to return to previous living situation. Total time is 35 minutes with greater than 50% spent in counseling and coordination of care. Exam Const: Vital Signs, click to edit/add: Vital Signs - 24 hr 11/20/22 14:04 11/20/22 14:35 11/20/22 14:36 Temperature 98.9 F Pulse Rate 81 83 Pulse Rate [Left P ulse Oximeter] Pulse Rate [Pulse Oximeter] 99 Respiratory Rate 20 Blood Pressure 120/77 Blood Pressure [Le ft Arm] Blood Pressure [Le ft Upper Arm] 125/88 Pulse Oximetry 94 92 93 Oxygen Delivery Me thod Room Air Nasal Cannula Oxygen Flow Rate 2 11/20/22 14:45 11/20/22 18:42 11/20/22 20:00 Temperature 97.6 F Pulse Rate 85 Pulse Rate [Left P ulse Oximeter] 94 Pulse Rate [Pulse Oximeter] Respiratory Rate 24 Blood Pressure Blood Pressure [Le ft Arm] 107/90 H Blood Pressure [Le ft Upper Arm] Pulse Oximetry 92 96 95 Oxygen Delivery Me thod Nasal Cannula Oxygen Flow Rate 2 11/20/22 18:42 11/20/22 23:00 11/20/22 23:00 Temperature Pulse Rate Pulse Rate [Left P ulse Oximeter] 87 Pulse Rate [Pulse Oximeter] Respiratory Rate 24 18 Blood Pressure Blood Pressure [Le ft Arm] Blood Pressure [Le ft Upper Arm] Pulse Oximetry 91 94 Oxygen Delivery Me thod Nasal Cannula Oxygen Flow Rate 2 11/20/22 23:00 11/20/22 23:00 11/21/22 02:38 Temperature 97.6 F Pulse Rate Pulse Rate [Left P ulse Oximeter] 87 63 Pulse Rate [Pulse Oximeter] Respiratory Rate 18 18 18 Blood Pressure Blood Pressure [Le ft Arm] 94/66 Blood Pressure [Le ft Upper Arm] Pulse Oximetry 94 94 94 Oxygen Delivery Me thod Nasal Cannula Nasal Cannula Nasal Cannula Oxygen Flow Rate 1 1 1 11/21/22 07:00 11/21/22 07:00 11/21/22 07:00 Temperature 97.9 F Pulse Rate Pulse Rate [Left P ulse Oximeter] 89 Pulse Rate [Pulse Oximeter] Respiratory Rate 24 24 Blood Pressure Blood Pressure [Le ft Arm] 94/52 L Blood Pressure [Le ft Upper Arm] Pulse Oximetry 92 92 Oxygen Delivery Me thod Room Air Oxygen Flow Rate 11/21/22 07:00 Temperature Pulse Rate Pulse Rate [Left P ulse Oximeter] Pulse Rate [Pulse Oximeter] Respiratory Rate 24 Blood Pressure Blood Pressure [Le ft Arm] Blood Pressure [Le ft Upper Arm] Pulse Oximetry 92 Oxygen Delivery Me thod Room Air Oxygen Flow Rate 1 Labs Labs: Laboratory Results - last 24 hr 11/20/22 11/20/22 11/20/22 14:05 14:05 14:18 WBC 7.93 RBC 4.73 Hgb 14.4 Hct 44.9 MCV 95 MCH 30 MCHC 32 RDW Coeff of Odalis 13.5 Plt Count 160 Neut % (Auto) 58.8 Lymph % (Auto) 29.8 [place] % (Auto) 4.8 Eos % (Auto) 6.2 Baso % (Auto) 0.4 Neut # (Auto) 4.67 Lymph # (Auto) 2.36 [place] # (Auto) 0.40 Eos # (Auto) 0.49 Baso # (Auto) 0.03 INR APTT D-Dimer Quant (PE/DVT) Sodium Potassium Chloride Carbon Dioxide BUN Creatinine Estimated GFR Glucose Calcium C-Reactive Protein NT-Pro-B Natriuret Pep SARS-CoV-2 (PCR) Negative SARS-CoV-2 Influenza Type A (PCR) Negative PCR FLU A Influenza Type B (PCR) Negative PCR FLU B RSV (PCR) Negative PCR RSV POC Troponin I 0.00 L 11/20/22 11/20/22 14:18 14:18 WBC RBC Hgb Hct MCV MCH MCHC RDW Coeff of [place]alis Plt Count Neut % (Auto) Lymph % (Auto) [place] % (Auto) Eos % (Auto) Baso % (Auto) Neut # (Auto) Lymph # (Auto) [place] # (Auto) Eos # (Auto) Baso # (Auto) INR 0.95 APTT 31 D-Dimer Quant (PE/DVT) < 0.27 Sodium 139 Potassium 3.8 Chloride 103 Carbon Dioxide 32 BUN 15 Creatinine 0.6 Estimated GFR 102 Glucose 105 Calcium 9.2 C-Reactive Protein < 0.5 L NT-Pro-B Natriuret Pep 110 SARS-CoV-2 (PCR) Influenza Type A (PCR) Influenza Type B (PCR) RSV (PCR) POC Troponin I
[2022-11-21 10:44] LABS: ABG PCO2 43 mmHG (35-45); Base Excess ABG 3.5 mmol/L (-3.0-3.0); Carboxyhemoglobin* 1.4 % (0.0-5.0); HCO3 ABG 28 mmol/L (21-28); Oxygen Saturation ABG 95 % (92-100); PO2 ABG 67.2 mmHG (80-105); TCO2 ABG 25 mmol/l (21-30); pH ABG 7.43 (7.35-7.45)
[2022-11-21 11:00] VITALS: BP 108/65; PULSE 93; RESP 18; O2SAT 93
[2022-11-21] MEDS: SERTRALINE 50 MG TABLET 25 MG PO (11:00)
[2022-11-21] MEDS: BUDESONIDE 0.5 MG/2ML NEB NEB (11:00)
[2022-11-21 15:00] VITALS: BP 107/65; PULSE 86; RESP 16; RESP 18; TEMP 36.7; O2SAT 95
--- NOTE | 2022-11-21 15:26 | PC.NURSE ---
Pt is alert and oriented x3. Pt denies headache, pain, chest pain, and N/V. Pt reports SOB at rest and with exertion, pt is on 2.5L of oxygen. Pt is SBA to bathroom and chair. Pt tolerating a regular diet.
--- NOTE | 2022-11-21 16:38 | PC.SOCIAL ---
Discharge planning- Informed by that pt will go home with hospice in place. Phone call to pt's sister, Carmita, to see if there is preference on what hospice agency they would like to go with. Carmita informed that she is fine with any agency that can admit pt sooner. Phone call to [facility] to discuss referral and when they can admit pt. [facility] is able to admit pt to hospice tomorrow upon discharge around 1:00 pm at pt's home. Faxed referral to hospice at [phone]. Received a phone call from Lisette Mack from [facility] (Pt's EW worker) at [phone]. Discussed discharge plan with Lisette. Lisette asked if social work would be placing pt in a higher level of care. Informed Lisette that MD decision was to send pt home with hospice in place until [facility] was able to locate assisted living. Lisette asked this worker to update her before discharge tomorrow. Received another phone call from Lisette stating that she was concerned with pt discharging home because pt has high anxiety and will not be successful in his home setting. Lisette asked that this worker check with [facility] and [facility] for possible placement. Lisette stated that pt's family was also concerned that pt would be discharging home and felt he needed a higher level of care. Phone call to Pt's sister, Carmita, to discuss further. Carmita states that Lisette from [facility] called her and told the sister that she was concerned and after her conversation with Lisette that the sister became concerned. Pt's sister states that Lisette informed her that the hospital staff does not know pt as well as they do and they think pt will not be successful at home. This worker informed that this worker will discuss further with the medical team and provide pt's sister with an update and will also reach out to Lisette from [facility]. Carmita provided her brother, Samir, contact information if pt is in need of a transport to go home tomorrow. Tre's phone number is [phone]. Reached out to the follow facilities to see if they would consider pt for admission with EW in place. 1. [facility]- Phone call to Sangita. Sangita stated they are declining because they cannot meet pt's needs. 2. [facility]- phone call to Mary. Mary informed that there are no EW beds and no openings at [facility]. 3. [facility]- Phone call to Rebekah. Rebekah will review with the team tomorrow. Faxed referral to [phone]. Social work will follow up as necessary.
--- NOTE | 2022-11-21 19:33 | PC.NURSE ---
End of shift-- Very pleasant and cooperative, alert and oriented patient. VSS and pt is afebrile. SPO2 maintained >90% on 1.5L per n.c. while at rest. Pt does become SOB with exertion and sats do drop though pt is able to recover fairly quickly. He denied any pain. LS diminished with an occasional expiratory wheeze noted. Pt does have an intermittent productive cough with yellow sputum. He was up independently to SBA and tolerated it fair. He denied nausea and tolerated a regular diet, though appetite is only fair. He did have a moderate, formed, continent BM this evening. Pt seems down today, but appropriately so. Report to SID Galvez.
[2022-11-21 20:09] VITALS: BP 101/60; PULSE 88; RESP 16; TEMP 37.1; O2SAT 94
[2022-11-22] MEDS: TAMSULOSIN HCL 0.4 MG CAPSULE PO ×2 (00:25→22:10)
[2022-11-22] MEDS: SODIUM CHLORIDE 0.9 % (FLUSH) 10 ML SYRINGE 5 ML IVF ×3 (00:26→22:11)
[2022-11-22] MEDS: BUDESONIDE 0.5 MG/2ML NEB NEB (00:34)
[2022-11-22 03:28] VITALS: BP 108/70; PULSE 79; RESP 18; TEMP 36.9; O2SAT 94
[2022-11-22] MEDS: IPRAT-ALBUT 0.5-2.5 MG/3 ML NEB 1 NEB IH (06:18)
[2022-11-22 07:00] VITALS: BP 92/54; PULSE 80; RESP 20; RESP 22; TEMP 36.9; O2SAT 93; O2SAT 94
--- NOTE | 2022-11-22 07:43 | PC.NURSE ---
pt SOB with exertion. End stage COPD. LS diminished. Scheduled and prn nebs available. On 1 Liter oxygen to keep sats above 90%. A&O. declined nicotine patch removal and replacement. SBA in room. .
[2022-11-22] MEDS: AMOXICILLIN/CLAVULANATE 500 mg/125 mg TABLET PO (08:48)
[2022-11-22] MEDS: SERTRALINE 50 MG TABLET 25 MG PO (08:48)
[2022-11-22] MEDS: ALBUTEROL SULFATE 2.5 MG/3 ML VIAL.NEB NEB (10:26)
--- NOTE | 2022-11-22 10:30 | PM.IMPN1 ---
Progress Note: A&P Assessment and plan (1) Acute exacerbation of chronic obstructive pulmonary disease: Problem details: Stable. We are no longer pursuing active treatment with antibiotics inhaled corticosteroids. For comfort we will continue his DuoNebs, as needed oxygen. Status: Acute (2) Acute and chronic respiratory failure: Problem details: Echo and ABG are stable. PFTs reviewed from 2020 are severe end-stage COPD. He is cachectic. He is oxygen dependent. He is a hospice candidate and agrees to this path. Status: Acute (3) Stage 4 very severe COPD by GOLD classification: Problem details: PFTS @ [facility]: 02/06/2021 Study adequacy: The study is technically adequate. IMPRESSION: Very severe airflow obstruction Partial reversibility, does not meet ATS criteria for responsiveness No restriction, hyperinflation and air trapping, severe, RV 194% Diffusion is severely impaired Spirometry: FVC is 2.96 L which is 64% of predicted. FEV1 is 1.02 L which is 29% of predicted. FEV1/FVC is 34 with a predicted of 75. FEV1 changes by 112 ml (12 %) which is not a significant improvement by ATS criteria Lung volumes: TLC is 8.05 L which is 105% of predicted. Diffusion: DLCOcor is 6.66 which is 23% of predicted. By all standards/classifications, Bebeto has the most severe ratings on this COPD. This is according to ATS and GOLD guidelines. Last measurements were 02/15. However, his renal function is normal. His electrolytes are normal. And he is not in CO2 retention chronically. Status: Acute (4) Tobacco use disorder: Problem details: Ongoing. nicotine replacement offered. Status: Acute (5) Protein-calorie malnutrition, severe: Problem details: Poor appetite secondary to chronic dyspnea and COPD recurrent exacerbations. Status: Acute (6) Anxiety: Problem details: [id number], starting zoloft 11/21/22 Status: Acute Subjective Date Seen: 11/22/22 Interval history: Daily Progress Note - Hospital Medicine Day #: 3 CC: COPD exacerbation OVERNIGHT UPDATES FROM STAFF & MED, LAB, IMAGING UPDATES SLIM was stable overnight. He remains on oxygen. His 1-2 L by nasal cannula keep his sats between 85 and 92%. Blood pressures been soft with systolics in the 90s up to 107. His pulse has been in the 80s and regular. He has been afebrile. He had a full breakfast tray this morning. He appears mildly disheveled. He states over the last month he has had significant decline in his respiratory function. He said even getting up from the couch to the kitchen his saturations go weight down. He is continuing to smoke, however he states he has felt so poorly he has not really had the ability or desire. he is wearin nicotine patch currently. Final Impressions: ECHO 11/21/22 1. Normal LV size, normal wall thickness, hyperdynamic global systolic function with an estimated EF of > 75%. 2. Right ventricular cavity size is normal, global systolic RV function is normal. 3. No significant valve disease detected. 4. The ascending aorta is dilated with a maximal diameter of 3.9 cm. 5. The aortic sinus is dilated with a maximal diameter of 3.9 cm. ABG 11/21/22 reveals a normal pH. No CO2 retention. Mild acid-base imbalance. CTA 11/21/22 IMPRESSION: 1. No evidence of pulmonary embolus. 2. Severe centrilobular emphysema. 3. Mild bronchiectasis bilateral lower lobes with some endobronchial thickening which can be seen in bronchitis. Endobronchial debris in the bilateral lower lobes, likely mucus with distal discoid atelectasis. 4. Old granulomatous disease. Objective: Calm, disheveled, cachectic appearing Vitals: see above Lungs: Rhonchi bilaterally Cardiac: S1S2. No harsh murmurs Disposition/Potential discharge - HOSPICE but unclear if home vs SNF Total time is 35 minutes with greater than 50% spent in counseling and coordination of care. Exam Const: Vital Signs, click to edit/add: Vital Signs - 24 hr 11/21/22 11:36 11/21/22 11:00 11/21/22 15:00 Temperature Pulse Rate [Left P ulse Oximeter] 93 Respiratory Rate 18 Blood Pressure [Le ft Arm] 108/65 Pulse Oximetry 93 95 Oxygen Delivery Me thod Nasal Cannula Nasal Cannula Oxygen Flow Rate 1 Fraction of Inspir ed Oxygen 0.28 11/21/22 15:00 11/21/22 15:00 11/21/22 15:00 Temperature 98.0 F Pulse Rate [Left P ulse Oximeter] 86 86 Respiratory Rate 18 16 16 Blood Pressure [Le ft Arm] 107/65 Pulse Oximetry 95 95 Oxygen Delivery Me thod Nasal Cannula Nasal Cannula Oxygen Flow Rate 1.5 1.5 Fraction of Inspir ed Oxygen 11/21/22 20:09 11/22/22 03:28 11/22/22 03:28 Temperature 98.7 F Pulse Rate [Left P ulse Oximeter] 88 Respiratory Rate 16 18 Blood Pressure [Le ft Arm] 101/60 Pulse Oximetry 94 94 94 Oxygen Delivery Me thod Nasal Cannula Nasal Cannula Oxygen Flow Rate 1.5 1.5 Fraction of Inspir ed Oxygen 11/22/22 03:28 11/22/22 07:00 Temperature 98.5 F 98.5 F Pulse Rate [Left P ulse Oximeter] 79 80 Respiratory Rate 18 22 Blood Pressure [Le ft Arm] 108/70 92/54 L Pulse Oximetry 94 93 Oxygen Delivery Me thod Nasal Cannula Nasal Cannula Oxygen Flow Rate 1.5 Fraction of Inspir ed Oxygen Labs Labs: Laboratory Results - last 24 hr 11/21/22 10:35 ABG pH 7.43 ABG pCO2 43 ABG pO2 67.2 L ABG HCO3 28 ABG Total CO2 25 ABG O2 Saturation 95 ABG Base Excess 3.5 H Carboxyhemoglobin 1.4
[2022-11-22 11:00] VITALS: BP 89/54; PULSE 77; RESP 20; TEMP 36.7; O2SAT 94
--- NOTE | 2022-11-22 11:38 | PM.DS1 ---
DS: Providers Provider Date Seen: 11/22/22 Date of admission: 11/20/22 18:23 Primary care physician: Humberto Breen MD Admitting Clinician: Maribell Olivares MD Consults: 11/20/22 19:59 Consult to Respiratory Therapy [CONS] Routine Comment: Reason(s) for RT Consult:: Consult 11/20/22 20:15 Consult to Nutrition [CONS] Routine Comment: Reason for consult:: Weight Loss Attending Phys[facility] on [facility]: 11/22/22 DS: Diagnosis Discharge Diagnosis (1) Stage 4 very severe COPD by GOLD classification: Status: Acute Problem details: PFTS @ [facility]: 02/06/2021 Study adequacy: The study is technically adequate. IMPRESSION: Very severe airflow obstruction Partial reversibility, does not meet ATS criteria for responsiveness No restriction, hyperinflation and air trapping, severe, RV 194% Diffusion is severely impaired Spirometry: FVC is 2.96 L which is 64% of predicted. FEV1 is 1.02 L which is 29% of predicted. FEV1/FVC is 34 with a predicted of 75. FEV1 changes by 112 ml (12 %) which is not a significant improvement by ATS criteria Lung volumes: TLC is 8.05 L which is 105% of predicted. Diffusion: DLCOcor is 6.66 which is 23% of predicted. By all standards/classifications, Bebeto has the most severe ratings on this COPD. This is according to ATS and GOLD guidelines. Last measurements were 02/15. However, his renal function is normal. His electrolytes are normal. And he is not in CO2 retention chronically. (2) Protein-calorie malnutrition, severe: Status: Acute Problem details: Poor appetite secondary to chronic dyspnea and COPD recurrent exacerbations. (3) Anxiety: Status: Acute Problem details: [id number], starting zoloft 11/21/22 (4) Tobacco use disorder: Status: Acute Problem details: Ongoing. nicotine replacement offered. DS: Summary Hospital Course Hospital Course: HOSPITALIST DISCHARGE SUMMARY ATTENDING PHYSICIAN: Dania Smith MD FINAL DIAGNOSIS: COPD exacerbation End Stage COPD HOSPITAL FOLLOWUP ISSUES: Hospice placement REFERRALS WHILE ADMITTED: Social Work REFERRALS AFTER DISCHARGE: Hospice BRIEF HOSPITAL COURSE: Anderson, also known as AUDREY, has had frequent visits to our ER over the last 4 weeks secondary to panic, anxiety, end-stage COPD. He he lives alone at the [facility]. He has brothers and sisters who Johan often check on him but he would find himself short of breath and unsure what to do so he would call 911. He is on home O2. He gets treated for acute exacerbations of COPD but likely these are not true exacerbations but just progression of underlying disease. I reviewed his PFTs from 2020 and very severe disease was demonstrated. His numbers are listed in the diagnosis. I had a long talk with sanju and his sister audrey Vizcarra decided that going home to his apartment with hospice would be the next step he wanted to pursue. Ultimately he would like to be in the [facility] when he is too weak to care for himself or with intermittent visits from family and hospice staff. SUBSTANTIVE NOTATIONS ON IMAGING, LAB, MICROBIOLOGY/PATHOLOGY STUDIES: I did perform a chest CT with contrast which showed only what we presumed to be mucus plugging, severe COPD. His echocardiogram and his ABG were both reassuring. DISCHARGE MEDICATIONS: See Reconciled list - SIGNIFICANT CHANGES: Kept meds that would keep him comfortable from a COPD perspective on his MAR I am placing a fentanyl patch, 12 mcg, for ongoing dyspnea on exertion and anxiety P.r.n. Ativan as needed for the same REVIEW OF SYSTEMS No new chest pain or dyspnea Pain controlled No voiding difficulties Tolerating diet challenge PHYSICAL EXAM: CONSTITUTIONAL: Chronically ill-appearing. VITAL SIGNS: see record. HEENT: Normocephalic, atraumatic. PERRL, EOMI, conjunctivae pink, no scleral icterus. Ears and nose externally normal. Pharynx normal. NECK: No JVD. No carotid bruit, no thyromegaly, no adenopathy. CHEST: Distant breath sounds. Shallow breathing. HEART: S1 and S2 normal. Edema minimal ABDOMEN: Soft, nontender. Normal bowel sounds. MUSCULOSKELETAL: No gross joint deformity or swelling. NEURO: Cranial nerves intact. Grossly intact. No asymmetric findings. SKIN: No rashes, petechiae, concerning changes PSYCHIATRIC: Mood euthymic. Quiet DISPOSITION: Home on 11/23 with family to his apartment with hospice evaluating on the same morning. Time spent on discharge 37 minutes. Status at Discharge Functional status at discharge: uses cane/walker Overall status at discharge: patient is not back to baseline Time Spent with Patient Time attestation: Total time spent providing and/or coordinating discharge services: Time spent: Greater than 30 minutes Exam Const: Vital Signs, click to edit/add: Vital Signs - 24 hr 11/21/22 15:00 11/21/22 15:00 11/21/22 15:00 Temperature 98.0 F Pulse Rate [Left P ulse Oximeter] 86 Respiratory Rate 18 16 Blood Pressure [Le ft Arm] 107/65 Pulse Oximetry 95 95 95 Oxygen Delivery Me thod Nasal Cannula Nasal Cannula Oxygen Flow Rate 1.5 1.5 11/21/22 15:00 11/21/22 20:09 11/22/22 03:28 Temperature 98.7 F Pulse Rate [Left P ulse Oximeter] 86 88 Respiratory Rate 16 16 Blood Pressure [Le ft Arm] 101/60 Pulse Oximetry 94 94 Oxygen Delivery Me thod Nasal Cannula Oxygen Flow Rate 1.5 11/22/22 03:28 11/22/22 03:28 11/22/22 07:00 Temperature 98.5 F 98.5 F Pulse Rate [Left P ulse Oximeter] 79 80 Respiratory Rate 18 18 22 Blood Pressure [Le ft Arm] 108/70 92/54 L Pulse Oximetry 94 94 93 Oxygen Delivery Me thod Nasal Cannula Nasal Cannula Nasal Cannula Oxygen Flow Rate 1.5 1.5 Discharge Plan Discharge Disposition: [facility]- (Hospice) Date of Admission: 11/20/22 18:23 Attending Provider on Discharge: Dania Smith Primary Care Provider: Humberto Breen Discharge Medications: New lorazepam 0.5 mg Tablet 0.5 - 1 mg PO Q6H PRN (Reason: anxious; trouble breathing) Qty: 60 0RF ondansetron 4 mg Tablet,Disintegrating 4 mg PO Q6H PRNQty: 30 0RF sertraline 50 mg Tablet 50 mg PO DAILY Qty: 30 0RF nicotine 7 mg/24 hr Patch 24 Hour 1 patch transdermal Q24H Qty: 30 0RF fentanyl 12 mcg/hr Patch 72 Hour 1 patch transdermal Q72H Qty: 10 0RF Continued tamsulosin 0.4 mg capsule 0.4 mg PO HS Label Comments: TAKE ONE CAPSULE BY MOUTH EVERY DAY AFTER A MEAL albuterol sulfate [Ventolin HFA] 90 mcg/actuation HFA aerosol inhaler 2 inh INHALATION Q4H PRN (Reason: shortness of breath or wheezing) Label Comments: INHALE TWO PUFFS BY MOUTH EVERY 6 HOURS NEEDED FOR SHORTNESS OF BREATH 1ST CHOICE Stiolto Respimat 2.5-2.5 mcg/actuation mist 2 inh INHALATION Q24H Label Comments: INHALE TWO PUFFS BY MOUTH EVERY DAY fluticasone propionate [24 Hour Allergy Relief] 50 mcg/actuation spray,suspension 2 spray intranasal DAILY PRN Rx Instructions: administer into each nostril ipratropium-albuterol 0.5 mg-3 mg(2.5 mg base)/3 mL solution for nebulization 3 ml inhalation QID PRNQty: 90 0RF albuterol sulfate 2.5 mg/0.5 mL solution for nebulization 2.5 mg inhalation Q4H PRN (Reason: shortness of breath or wheezing) Qty: 30 0RF Discontinued prednisone 20 mg tablet 20 mg PO BID Qty: 10 0RF aspirin [Adult Aspirin Regimen] 81 mg tablet,delayed release (DR/EC) 81 mg PO DAILY omega [id number] oil [Fish Oil] 300-1,000 mg capsule 1 cap PO DAILY coenzyme Q10 [Co Q-10] 100 mg capsule 100 mg PO DAILY Discharge Orders: Discharge Order (Routine); Ordered 11/23/22 Ordered By: Dania Smith Additional Instructions: [facility] to evaluate and admit patient for end stage COPD. Activity Level: Activity as Tolerated Discharge Diet: Regular Follow Up Appointments: Humberto Breen MD [Primary Care Provider] - Forms: [facility] Info Instructions
[2022-11-22] MEDS: fentaNYL 12 mcg/hr PATCH 1 PATCH TRANSDERMA (11:43)
--- NOTE | 2022-11-22 12:06 | REH.PT ---
Pt educated on 4ww use at request of OT. Demonstrates Ind with gait using a 4ww short distances of 20-30 feet at time. Skilled PT not further warranted at this time.
[2022-11-22 15:00] VITALS: BP 89/55; PULSE 74; RESP 20; TEMP 37.1; O2SAT 95
--- NOTE | 2022-11-22 15:00 | PC.NURSE ---
Pt alert and oriented x3. Pt denies chest pain, N/V, and pain. Pt reports SOB at rest and with exertion. Pt tolerating a regular diet but has poor appetite, ensure was offered during shift and is at bed side, pt stated I will sip on it throughout the day. Pt up IND in room. Pt on 1.5 L of oxygen. Plan is to discharge to home with hospice care tomorrow.
--- NOTE | 2022-11-22 15:41 | PC.SOCIAL ---
Discharge planning: Spoke with pt's [facility] worker, Jennifer Frederick [phone] who has been working on setting up additional services at home but this has not yet been put in place. She is also suggesting a jail placement at [facility] in case he needs more assistance in the future. Met with pt who states he agrees with either the plan for discharge back to his apartment with hospice services or to placement in [facility] intermediate if accepted. Received call back from [facility] stating they cannot consider pt for placement unless he stops all use of tobacco, both smoking and chewing. Met with pt who states he will give up smoking but will not stop chewing tobacco. Pt is aware this will prevent him from admission to [facility] and he is not interested in any other jail at this time. Pt states he wants to return to his [facility]ment with hospice services when discharged tomorrow. Spoke with pt's sister who is aware and agrees with this plan, but is concerned about access for family and caregivers to his apartment as pt needs to physically let in visitors and that is draining for him as he lives on the third floor. Met with pt who also expressed concern about this and gave social welfare administrator permission to call assistant merchandise manager to ask about access for family and hospice team. Called assistant merchandise manager and was informed there is a way for pt to connect his cell phone to the door speaker and lock so that visitors can call him and he can easily unlock the door from his cell phone. The assistant merchandise manager will assist pt in setting this up tomorrow upon return. Pt and sister were pleased with this information. Called pt's brother at sister's request to arrange for transportation home. Brother, Tre, will pick pt up tomorrow at 10:00am so that pt will be home when [facility] visit at 11:00. Pt has his own portable oxygen in the room for transport home. Sister will be present at the house for the hospice intake. Called Jennifer Mack at [facility] and left a message with the discharge planning information.
--- NOTE | 2022-11-22 17:31 | PC.NURSE ---
PATIENT PLEASANT AND COOPERATIVE WITH STAFFING, REDUCED INTERACTIONS NOTED, TOLERATING REGULAR DIET, UP AD MICHELLE, NOTED TO BE SOB WITH ACTIVITY, O2 VIA NC, LUNG SOUNDS WITH EXP WHEEZING NOTED, DECLINING PAIN, SOFT PRESSURES MD AWARE NO CHANGES IN ORDERS AND PATIENT ASYMPTOMATIC.
[2022-11-22 21:00] VITALS: BP 80/51; PULSE 66; RESP 20; TEMP 37; O2SAT 97
[2022-11-22 23:00] VITALS: BP 101/65; PULSE 65; RESP 20; TEMP 36.9; O2SAT 95
[2022-11-23 03:00] VITALS: RESP 18
[2022-11-23 07:30] VITALS: BP 90/63; PULSE 62; RESP 20; TEMP 36.7; O2SAT 94
[2022-11-23] MEDS: SERTRALINE 50 MG TABLET 25 MG PO (09:19)
[2022-11-23 09:42] VITALS: BP 120/77; PULSE 85; RESP 18; TEMP 36.9
--- NOTE | 2022-11-23 10:53 | PC.NURSE ---
shift note: pt has low BP this a.m 90/63 with HR 62. Pt denies GIRARD, dizziness or c.p. vitals have been averaging in this number per history. Fentanyl patch to rt shoulder on dc intact. No other transdermal patch noted at dc. dc'd IV to Rt AC and Lt FA intact. Pt on home O2 tank at [facility]. Reviewed dc instructions and copies sent with pt at [facility]. Reviewed personal belongings. Pt recounted money prior to dc and $191 with 3 credit cards returned to pt in his wallet at [facility].
--- NOTE | 2022-11-23 17:08 | PM.DS1 ---
DS: Providers Provider Date Seen: 11/23/22 Date of admission: 11/20/22 18:23 Primary care physician: Humberto Breen MD Admitting Clinician: Maribell Olivares MD Attending Physician on discharge: Maribell Olivares MD Date of Discharge: 11/23/22 DS: Diagnosis Discharge Diagnosis (1) Acute exacerbation of chronic obstructive pulmonary disease: Status: Acute Problem details: Stable. We are no longer pursuing active treatment with antibiotics inhaled corticosteroids. For comfort we will continue his DuoNebs, as needed oxygen. (2) Tobacco use disorder: Status: Acute Problem details: Ongoing. nicotine replacement offered. (3) Anxiety: Status: Acute Problem details: [id number], starting zoloft 11/21/22. Plan will be to have hospice manage anxiety attacks which occur when he is dyspneic to avoid repeat emergency department visits. (4) Protein-calorie malnutrition, severe: Status: Acute Problem details: Poor appetite secondary to chronic dyspnea and COPD recurrent exacerbations. (5) Acute and chronic respiratory failure: Status: Acute Problem details: Echo and ABG are stable. PFTs reviewed from 2020 are severe end-stage COPD. He is cachectic. He is oxygen dependent. He is a hospice candidate and agrees to this path. (6) Stage 4 very severe COPD by GOLD classification: Status: Acute Problem details: PFTS @ [facility]: 02/06/2021 Study adequacy: The study is technically adequate. IMPRESSION: Very severe airflow obstruction Partial reversibility, does not meet ATS criteria for responsiveness No restriction, hyperinflation and air trapping, severe, RV 194% Diffusion is severely impaired Spirometry: FVC is 2.96 L which is 64% of predicted. FEV1 is 1.02 L which is 29% of predicted. FEV1/FVC is 34 with a predicted of 75. FEV1 changes by 112 ml (12 %) which is not a significant improvement by ATS criteria Lung volumes: TLC is 8.05 L which is 105% of predicted. Diffusion: DLCOcor is 6.66 which is 23% of predicted. By all standards/classifications, Bebeto has the most severe ratings on this COPD. This is according to ATS and GOLD guidelines. Last measurements were 02/15. However, his renal function is normal. His electrolytes are normal. And he is not in CO2 retention chronically. (7) Hospice care: Status: Acute Problem details: Patient continues to be agreeable with plan of hospice care. He will move in with his brother. DS: Summary Hospital Course Hospital Course: HOSPITALIST DISCHARGE SUMMARY ATTENDING PHYSICIAN: Dania Smith MD FINAL DIAGNOSIS: COPD exacerbation End Stage COPD HOSPITAL FOLLOWUP ISSUES: Hospice placement REFERRALS WHILE ADMITTED: Social Work REFERRALS AFTER DISCHARGE: Hospice BRIEF HOSPITAL COURSE: Anderson, also known as AUDREY, has had frequent visits to our ER over the last 4 weeks secondary to panic, anxiety, end-stage COPD. He he lives alone at the [facility]. He has brothers and sisters who Johan often check on him but he would find himself short of breath and unsure what to do so he would call 911. He is on home O2. He gets treated for acute exacerbations of COPD but likely these are not true exacerbations but just progression of underlying disease. I reviewed his PFTs from 2020 and very severe disease was demonstrated. His numbers are listed in the diagnosis. I had a long talk with sanju and his sister audrey Vizcarra decided that going home to his apartment with hospice would be the next step he wanted to pursue. Ultimately he would like to be in the [facility] when he is too weak to care for himself or with intermittent visits from family and hospice staff. SUBSTANTIVE NOTATIONS ON IMAGING, LAB, MICROBIOLOGY/PATHOLOGY STUDIES: I did perform a chest CT with contrast which showed only what we presumed to be mucus plugging, severe COPD. His echocardiogram and his ABG were both reassuring. DISCHARGE MEDICATIONS: See Reconciled list - SIGNIFICANT CHANGES: Kept meds that would keep him comfortable from a COPD perspective on his MAR I am placing a fentanyl patch, 12 mcg, for ongoing dyspnea on exertion and anxiety P.r.n. Ativan as needed for the same REVIEW OF SYSTEMS No new chest pain or dyspnea Pain controlled No voiding difficulties Tolerating diet challenge PHYSICAL EXAM: CONSTITUTIONAL: Chronically ill-appearing. VITAL SIGNS: see record. HEENT: Normocephalic, atraumatic. PERRL, EOMI, conjunctivae pink, no scleral icterus. Ears and nose externally normal. Pharynx normal. NECK: No JVD. No carotid bruit, no thyromegaly, no adenopathy. CHEST: Distant breath sounds. Shallow breathing. HEART: S1 and S2 normal. Edema minimal ABDOMEN: Soft, nontender. Normal bowel sounds. MUSCULOSKELETAL: No gross joint deformity or swelling. NEURO: Cranial nerves intact. Grossly intact. No asymmetric findings. SKIN: No rashes, petechiae, concerning changes PSYCHIATRIC: Mood euthymic. Quiet DISPOSITION: Home on 11/23 with family to his apartment with hospice evaluating on the same morning. Time spent on discharge 37 minutes. Update 11/23/2022. Patient continues to be in favor of hospice care in his brother's home. I have reviewed the plan of care in some detail. Discussed how we can manage his substantial symptoms of dyspnea and anxiety with hospice. Status at Discharge Overall status at discharge: other (Terminally ill with end-stage COPD and prominent anxiety) Time Spent with Patient Time attestation: Total time spent providing and/or coordinating discharge services: Time spent: Greater than 30 minutes Exam Narrative: Exam Narrative: He is alert and pleasant. Mildly anxious. Mildly dyspneic at rest. On supplemental oxygen. Cachectic. Const: Vital Signs, click to edit/add: Vital Signs - 24 hr 11/22/22 21:00 11/22/22 23:00 11/22/22 23:00 Temperature 98.6 F Pulse Rate Pulse Rate [Left P ulse Oximeter] 66 65 Respiratory Rate 20 20 Blood Pressure Blood Pressure [Le ft Arm] 80/51 L Pulse Oximetry 97 95 Oxygen Delivery Me thod Nasal Cannula Oxygen Flow Rate 1 11/22/22 23:00 11/22/22 23:00 11/23/22 03:00 Temperature 98.5 F Pulse Rate Pulse Rate [Left P ulse Oximeter] 65 Respiratory Rate 20 20 18 Blood Pressure Blood Pressure [Le ft Arm] 101/65 Pulse Oximetry 95 95 Oxygen Delivery Me thod Nasal Cannula Nasal Cannula Nasal Cannula Oxygen Flow Rate 1.5 1.5 1.5 11/23/22 09:42 11/23/22 07:30 11/23/22 07:30 Temperature 98.5 F Pulse Rate 85 Pulse Rate [Left P ulse Oximeter] Respiratory Rate 18 20 Blood Pressure 120/77 Blood Pressure [Le ft Arm] Pulse Oximetry 94 94 Oxygen Delivery Me thod Nasal Cannula Oxygen Flow Rate 1 11/23/22 07:30 Temperature 98.1 F Pulse Rate Pulse Rate [Left P ulse Oximeter] 62 Respiratory Rate 20 Blood Pressure Blood Pressure [Le ft Arm] 90/63 Pulse Oximetry 94 Oxygen Delivery Me thod Nasal Cannula Oxygen Flow Rate 1 Documenting provider has reviewed patient's vital signs: yes Discharge Plan Discharge Disposition: Xfer Home- (Hospice) Date of Admission: 11/20/22 18:23 Attending Provider on Discharge: Dania Smith Primary Care Provider: Humberto Breen Discharge Medications: New lorazepam 0.5 mg Tablet 0.5 - 1 mg PO Q6H PRN (Reason: anxious; trouble breathing) Qty: 60 0RF ondansetron 4 mg Tablet,Disintegrating 4 mg PO Q6H PRNQty: 30 0RF sertraline 50 mg Tablet 50 mg PO DAILY Qty: 30 0RF nicotine 7 mg/24 hr Patch 24 Hour 1 patch transdermal Q24H Qty: 30 0RF fentanyl 12 mcg/hr Patch 72 Hour 1 patch transdermal Q72H Qty: 10 0RF Continued tamsulosin 0.4 mg capsule 0.4 mg PO HS Label Comments: TAKE ONE CAPSULE BY MOUTH EVERY DAY AFTER A MEAL albuterol sulfate [Ventolin HFA] 90 mcg/actuation HFA aerosol inhaler 2 inh INHALATION Q4H PRN (Reason: shortness of breath or wheezing) Label Comments: INHALE TWO PUFFS BY MOUTH EVERY 6 HOURS NEEDED FOR SHORTNESS OF BREATH 1ST CHOICE Stiolto Respimat 2.5-2.5 mcg/actuation mist 2 inh INHALATION Q24H Label Comments: INHALE TWO PUFFS BY MOUTH EVERY DAY fluticasone propionate [24 Hour Allergy Relief] 50 mcg/actuation spray,suspension 2 spray intranasal DAILY PRN Rx Instructions: administer into each nostril ipratropium-albuterol 0.5 mg-3 mg(2.5 mg base)/3 mL solution for nebulization 3 ml inhalation QID PRNQty: 90 0RF albuterol sulfate 2.5 mg/0.5 mL solution for nebulization 2.5 mg inhalation Q4H PRN (Reason: shortness of breath or wheezing) Qty: 30 0RF Discontinued prednisone 20 mg tablet 20 mg PO BID Qty: 10 0RF aspirin [Adult Aspirin Regimen] 81 mg tablet,delayed release (DR/EC) 81 mg PO DAILY omega 3-dbi-kdt-fish oil [Fish Oil] 300-1,000 mg capsule 1 cap PO DAILY coenzyme Q10 [Co Q-10] 100 mg capsule 100 mg PO DAILY Discharge Orders: Discharge Order (Routine); Ordered 11/23/22 Ordered By: Dania Smith Additional Instructions: [facility] to evaluate and admit patient for end stage COPD. Activity Level: Activity as Tolerated Discharge Diet: Regular Follow Up Appointments: Humberto Breen MD [Primary Care Provider] - Forms: [employer] Info Instructions
== END 2022-11-23 10:00 | disposition hospice, home (50) ==
LOC: ED 17:57 → MEDSURG 18:23
PROVIDERS: Family Medicine; Admitting Provider Family Medicine; Emergency Provider Family Medicine; PCP Family Medicine; Visit Provider Family Medicine
DX: J44.9 Chronic obstructive pulmonary disease, unspecified (principal); J96.20 Acute and chronic respiratory failure, unspecified whether with hypoxia or hypercapnia; J44.1 Chronic obstructive pulmonary disease with (acute) exacerbation; Z99.81 Dependence on supplemental oxygen; F17.200 Nicotine dependence, unspecified, uncomplicated; E43 Unspecified severe protein-calorie malnutrition; F41.9 Anxiety disorder, unspecified; Z51.5 Encounter for palliative care; Z87.09 Personal history of other diseases of the respiratory system; Z98.890 Other specified postprocedural states; Z87.898 Personal history of other specified conditions; R64 Cachexia; J98.11 Atelectasis; J98.4 Other disorders of lung
CPT/HCPCS: 36415; 36600; 71046; 71260; 80048; 82803; 83880; 84484; 85025; 85379; 85610; 85730; 86140; 87502; 87634; 87635; 93005; 93306; 94640; 94761; 96374; 96376; 97165; 97535; 99285; A9270; G0378; J2930; J7512; J7626; Q9967; S4990

== ENCOUNTER 2022-12-22 03:18 | Outpatient (CLI) | payer MEDICARE, BC, MEDICAID, SELFPAY | END 2022-12-22 03:19 | disposition home or self-care (01) | PROVIDERS: PCP Family Medicine; Visit Provider Internal Medicine | DX: R06.02 Shortness of breath (principal) | CPT/HCPCS: A0425; A0427 ==

== ENCOUNTER 2022-12-22 03:49 | Emergency (ER) | payer MEDICARE, BC, MEDICAID, SELFPAY ==
[2022-12-22] VITALS (8 sets, daily range): BP systolic 83–106; BP diastolic 60–67; PULSE 93–108; RESP 22; TEMP 37.6; O2SAT 94–97
--- NOTE | 2022-12-22 03:57 | CRLHL7_ITS ---
For Patients: As a result of the Century Cures Act, medical imaging exams and procedure reports are released immediately into your electronic medical record. You may view this report before your referring provider. If you have questions, please contact your health care provider. INDICATION: Productive COUGH, H/O COPD, [place] TECHNIQUE: Chest 1 views. COMPARISON: Chest x-ray November 20, 2022. FINDINGS: Cardiovascular and mediastinum: Heart size and vasculature are normal in caliber and appearance. Lungs and pleural spaces: Hyperinflated lungs with interstitial prominence compatible with history of COPD. Findings similar to prior exam. No evidence of focal consolidation. No sign of pleural effusion. No pneumothorax. Bones and soft tissues: No significant findings. IMPRESSION: Hyperinflated lungs with interstitial prominence compatible with history of COPD. Findings similar to prior exam. No evidence of focal consolidation. Dictated by Silas Gracia MD @ 12/22/2022 4:36:12 AM (Electronically Signed)
--- NOTE | 2022-12-22 04:18 | ED_ITS ---
HPI - SOB/Dyspnea General Chief Complaint: Shortness of Breath/Dyspnea Stated Complaint: difficulty breathing, fever Time Seen by Provider: 12/22/22 03:59 History of Present Illness HPI Narrative: Pt is a 72 year old oxygen dependent COPD patient who awoke with shortness of breath 2 hours ago. Pt has been seen numerous times with shortness of breath with similar presentations. Pt is on 1 1/2 liters of oxygen per nasal canula at home and is currently saturating 94% with that supplementation. Pt has had no chest pain, nausea, vomiting, diaphoresis or cough. Pt has been in his usual state of health and has not been having any pain. Shortness of breath resolved by the time the patient arrived in the ED via ambulance. No other symptoms noted. Related Data Home Medications Medication Instructions Recorded Confirmed albuterol sulfate 90 mcg/actuation 2 inh inhalation Q4H PRN shortness 11/02/22 11/20/22 aerosol inhaler (Ventolin HFA) of breath or wheezing tamsulosin 0.4 mg capsule 0.4 mg PO HS 11/02/22 11/20/22 tiotropium 2.5 mcg-olodaterol 2.5 2 inh inhalation Q24H 11/02/22 11/20/22 mcg/actuation mist for inhalation (Stiolto Respimat) fluticasone propionate 50 2 spray intranasal DAILY PRN 11/21/22 11/21/22 mcg/actuation nasal spray,suspension (24 Hour Allergy Relief) Previous Rx's Medication Instructions Recorded albuterol sulfate 2.5 mg/0.5 mL 2.5 mg (0.5 mL) inhalation Q4H PRN 11/14/22 solution for nebulization shortness of breath or wheezing #30 ea ipratropium 0.5 mg-albuterol 3 mg 3 ml inhalation QID PRN #90 mL 11/14/22 (2.5 mg base)/3 mL nebulization soln fentanyl 12 mcg/hr transdermal 1 patch transdermal Q72H #10 ea 11/22/22 patch lorazepam 0.5 mg tablet 0.5 - 1 mg PO Q6H PRN anxious; 11/22/22 trouble breathing #60 tabs nicotine 7 mg/24 hr daily 1 patch transdermal Q24H #30 ea 11/22/22 transdermal patch ondansetron 4 mg disintegrating 4 mg PO Q6H PRN #30 tabs 11/22/22 tablet sertraline 50 mg tablet 50 mg PO DAILY #30 tabs 11/22/22 azithromycin 250 mg tablet See Rx Instructions PO .COMPLEX #6 12/22/22 (Zithromax Z-Bright) tabs prednisone 20 mg tablet 20 mg PO BID #10 tabs 12/22/22 Allergies Allergy/AdvReac Type Severity Reaction Status Date / Time No Known Drug Allergies Allergy Verified 11/21/22 10:00 Review of Systems Status of ROS: Reports: 10 or more systems reviewed and unremarkable except as noted in History and below [facility] Medical History (Updated 12/22/22 @ 05:50 by Royer Dunham MD) Acute and chronic respiratory failure Acute urinary retention Bilateral sensorineural hearing loss BPH (benign prostatic hyperplasia) Chronic sinusitis Clostridioides difficile infection (12/07/15) Constipation COPD (chronic obstructive pulmonary disease) Femur fracture Hyperlipidemia Mucus plugging of bronchi Pneumonia (~1995) Stage 4 very severe COPD by GOLD classification Surgical History (Updated 11/20/22 @ 20:31 by Maribell Olivares MD) Hx of colonoscopy (02/28/09) Hx of inguinal herniorrhaphy (11/24/19) Family History (Updated 11/20/22 @ 20:34 by Maribell Olivares MD) Mother Breast cancer Grandfather Stroke Social History (Updated 11/20/22 @ 20:35 by Maribell Oliavres MD) Narrative: Lives in an apartment. Smokes 1/4 PPD. Denies EtOH. Denies recreational drugs. DNR/DNI. Highest level of school completed/degree received: 10th grade Smoking Status: Current every day smoker What tobacco products do you use: cigarettes Do you use any of these nicotine containing products: None Second hand tobacco smoke exposure: Yes How often do you have a drink containing alcohol: 2-3 times a week AUDIT-C Alcohol total score: 3 Non-prescribed substance use: denies use Caffeine: Yes service: No Exam Narrative: Exam Narrative: EXAM GENERAL: Patient appears comfortable and well breathing oxygen at 1.5 liters nc. EYES: No scleral icterus. LYMPH: No supraclavicular or cervical lymphadenopathy. SKIN: Visible skin seen during exam normal or with benign process only. EXT: No dependent lower extremity pedal edema. HEART: Regular rate and rhythm with no murmurs, rubs, or gallops. LUNGS: Clear to auscultation bilaterally with no crackles or wheezes. Decreased breath sounds bilaterally. ABD: Soft, non tender, non distended. PSYCH: Good eye contact, speech is not pressured. Const: Vital Signs, click to edit/add: Vital Signs - 24 hr 12/22/22 04:00 Temperature 99.7 F H Pulse Rate [Right Pulse Oximeter] 103 H Respiratory Rate 22 Blood Pressure [Le ft Upper Arm] 96/61 Pulse Oximetry 96 Oxygen Delivery Me thod Nasal Cannula Oxygen Flow Rate 2 Course Course Hospital Course: Pt seen and examined. Labs, x ray and ekg ordered. Vital Signs Vital signs: Initial Vital Signs Temperature 99.7 F H 12/22/22 04:00 Temperature Source Temporal Artery Scan 12/22/22 04:00 Pulse Rate 103 H 12/22/22 04:00 Pulse Rhythm 12/22/22 04:00 Respiratory Rate 22 12/22/22 04:00 Blood Pressure 96/61 12/22/22 04:00 Blood Pressure Mean 72 12/22/22 04:00 Blood Pressure Position High-Fowlers 12/22/22 04:00 Pulse Oximetry 96 12/22/22 04:00 Oxygen Delivery Method 12/22/22 04:00 Oxygen Flow Rate 2 12/22/22 04:00 Vital Signs Temperature 99.7 F H 12/22/22 04:00 Pulse Rate 103 H 12/22/22 04:00 Respiratory Rate 22 12/22/22 04:00 Blood Pressure 96/61 12/22/22 04:00 Pulse Oximetry 96 12/22/22 04:00 Oxygen Delivery Method 12/22/22 04:00 Oxygen Flow Rate 2 12/22/22 04:00 Temperature 99.7 F H 12/22/22 04:00 Pulse Rate 103 H 12/22/22 04:00 Respiratory Rate 22 12/22/22 04:00 Blood Pressure 96/61 12/22/22 04:00 Pulse Oximetry 96 12/22/22 04:00 Oxygen Delivery Method 12/22/22 04:00 Oxygen Flow Rate 2 12/22/22 04:00 MDM - SOB/Dyspnea MDM Narrative Medical decision making narrative: Pt is a 72 year old gentleman with a long history of COPD Oxygen dependent who presents with shortness of breath. This is similar to previous presentations. Pt has a chest x ray showing hyperinflation with no other findings. Labs are reassuring. D dimer boderline but unlikely to refect a PE. Pt's EKG shows only sinus tachycardia. Troponin negative. Will treat as previous with zithromax and steroids. Encouraged smoking cessation and PCP follow up. Differential Diagnosis Differential diagnosis: Likely acute exacerbation of chronic obstructive airways disease, congestive heart failure, community acquired pneumonia, asthma with exacerbation and pulmonary embolism Medical Records Attestation: I reviewed the patient's medical records. Lab Data Labs: Lab Results 12/22/22 12/22/22 12/22/22 Range/Units 03:55 04:40 04:40 WBC 15.30 H (4.50-11.00) K/uL RBC 4.41 (4.30-5.90) m/uL Hgb 13.6 (13.5-17.5) gm/dL Hct 41.4 (37.0-53.0) % MCV 94 (80-100) fL MCH 31 (26-34) pg MCHC 33 (32-36) gm/dL RDW Coeff of [place] 13.1 (11.5-15.5) % Plt Count 165 (140-440) K/uL Neut % (Auto) 85.3 H (42.0-72.0) % Lymph % (Auto) 8.6 L (20-44) % [place] % (Auto) 5.8 (0.0-11.0) % Eos % (Auto) 0.1 (0.0-7.0) % Baso % (Auto) 0.1 (0.0-3.0) % Neut # (Auto) 13.10 H (1.7-7.0) K/uL Lymph # (Auto) 1.30 (0.90-2.90) K/uL [place] # (Auto) 0.90 (0.00-0.90) K/UL Eos # (Auto) 0.00 (0.00-0.50) K/uL Baso # (Auto) 0.00 (0.00-0.30) K/uL D-Dimer Quant (PE/DVT) (0.00-0.50) ug/ml Sodium 135 (135-149) mmol/L Potassium 4.5 (3.6-5.1) mmol/L Chloride 102 (96-114) mmol/L Carbon Dioxide 29 (20-32) mmol/L BUN 15 (7-30) mg/dL Creatinine 0.7 (0.5-1.5) mg/dL Estimated GFR 97 ml/min Glucose 135 H (60-115) mg/dL Calcium 9.4 (8.4-10.6) mg/dL Troponin I < 0.01 L (0.01-0.04) ng/mL SARS-CoV-2 (PCR) Negative SARS-CoV-2 (Negative) Influenza Type A (PCR) Negative PCR FLU A (Negative) Influenza Type B (PCR) Negative PCR FLU B (Negative) RSV (PCR) Negative PCR RSV (Negative) 12/22/22 Range/Units 04:40 WBC (4.50-11.00) K/uL RBC (4.30-5.90) m/uL Hgb (13.5-17.5) gm/dL Hct (37.0-53.0) % MCV (80-100) fL MCH (26-34) pg MCHC (32-36) gm/dL RDW Coeff of [place] (11.5-15.5) % Plt Count (140-440) K/uL Neut % (Auto) (42.0-72.0) % Lymph % (Auto) (20-44) % [place] % (Auto) (0.0-11.0) % Eos % (Auto) (0.0-7.0) % Baso % (Auto) (0.0-3.0) % Neut # (Auto) (1.7-7.0) K/uL Lymph # (Auto) (0.90-2.90) K/uL [place] # (Auto) (0.00-0.90) K/UL Eos # (Auto) (0.00-0.50) K/uL Baso # (Auto) (0.00-0.30) K/uL D-Dimer Quant (PE/DVT) 0.72 H (0.00-0.50) ug/ml Sodium (135-149) mmol/L Potassium (3.6-5.1) mmol/L Chloride (96-114) mmol/L Carbon Dioxide (20-32) mmol/L BUN (7-30) mg/dL Creatinine (0.5-1.5) mg/dL Estimated GFR ml/min Glucose (60-115) mg/dL Calcium (8.4-10.6) mg/dL Troponin I (0.01-0.04) ng/mL SARS-CoV-2 (PCR) (Negative) Influenza Type A (PCR) (Negative) Influenza Type B (PCR) (Negative) RSV (PCR) (Negative) Discharge Plan Discharge Clinical Impression: COPD exacerbation Condition: Stable Instructions: COPD (Chronic Obstructive Pulmonary Disease) (ED) Additional Instructions: Stop smoking Zithromax and Prednisone as sent to your pharmacy Continue home medications Follow up with your doctor this week. Activity Level: No Restrictions Discharge Diet: Regular Prescriptions: New azithromycin [Zithromax Z-Bright] 250 mg tablet See Rx Instructions .ROUTE .COMPLEX Qty: 6 0RF Rx Instructions: For 250 mg dose pack: take 500 mg today (day 1), then 250 mg for 4 days (days 2-5) prednisone 20 mg tablet 20 mg PO BID Qty: 10 0RF No Action tamsulosin 0.4 mg capsule 0.4 mg PO HS Label Comments: TAKE ONE CAPSULE BY MOUTH EVERY DAY AFTER A MEAL albuterol sulfate [Ventolin HFA] 90 mcg/actuation HFA aerosol inhaler 2 inh INHALATION Q4H PRN (Reason: shortness of breath or wheezing) Label Comments: INHALE TWO PUFFS BY MOUTH EVERY 6 HOURS NEEDED FOR SHORTNESS OF BREATH 1ST CHOICE Stiolto Respimat 2.5-2.5 mcg/actuation mist 2 inh INHALATION Q24H Label Comments: INHALE TWO PUFFS BY MOUTH EVERY DAY fluticasone propionate [24 Hour Allergy Relief] 50 mcg/actuation spray,suspension 2 spray intranasal DAILY PRN Rx Instructions: administer into each nostril lorazepam 0.5 mg Tablet 0.5 - 1 mg PO Q6H PRN (Reason: anxious; trouble breathing) Qty: 60 0RF ondansetron 4 mg Tablet,Disintegrating 4 mg PO Q6H PRNQty: 30 0RF sertraline 50 mg Tablet 50 mg PO DAILY Qty: 30 0RF nicotine 7 mg/24 hr Patch 24 Hour 1 patch transdermal Q24H Qty: 30 0RF fentanyl 12 mcg/hr Patch 72 Hour 1 patch transdermal Q72H Qty: 10 0RF ipratropium-albuterol 0.5 mg-3 mg(2.5 mg base)/3 mL solution for nebulization 3 ml inhalation QID PRNQty: 90 0RF albuterol sulfate 2.5 mg/0.5 mL solution for nebulization 2.5 mg inhalation Q4H PRN (Reason: shortness of breath or wheezing) Qty: 30 0RF Follow Up/Referrals: Humberto Breen MD [Primary Care Provider] - Stand Alone Forms: [employer] Medical Info Instructions
[2022-12-22 04:38] LABS: PCR FLU A Negative PCR FLU A (Negative); PCR FLU B Negative PCR FLU B (Negative); PCR RSV Negative PCR RSV (Negative)
[2022-12-22 04:44] LABS: SARS PCR* Negative SARS-CoV-2 (Negative)
[2022-12-22 04:46] LABS: Basophils Percent Auto 0.1 % (0.0-3.0); Eosinophils Percent Auto 0.1 % (0.0-7.0); Hematocrit 41.4 % (37.0-53.0); Hemoglobin* 13.6 gm/dL (13.5-17.5); Immature Granulocytes Pct Auto 0.1 %; Lymphocytes Percent Auto 8.6 % (20-44); Mean Corpuscular HGB Conc 33 gm/dL (32-36); Mean Corpuscular Hemoglobin 31 pg (26-34); Mean Corpuscular Volume 94 fL (80-100); Monocytes Percent Auto 5.8 % (0.0-11.0); Neutrophils Percent Auto 85.3 % (42.0-72.0); Platelet Count* 165 K/uL (140-440); RDW Coefficient of Variation % 13.1 % (11.5-15.5); Red Blood Count 4.41 m/uL (4.30-5.90); Slide Review Reflex No
[2022-12-22 05:02] LABS: Chloride* 102 mmol/L (96-114); Potassium* 4.5 mmol/L (3.6-5.1); Sodium* 135 mmol/L (135-149)
[2022-12-22 05:04] LABS: Creatinine* 0.7 mg/dL (0.5-1.5); Estimated Glomerular Filt Rate 97 ml/min
[2022-12-22 05:05] LABS: Blood Urea Nitrogen* 15 mg/dL (7-30); Calcium* 9.4 mg/dL (8.4-10.6); Carbon Dioxide* 29 mmol/L (20-32); Glucose* 135 mg/dL (60-115)
[2022-12-22 05:17] LABS: Troponin I* < 0.01 ng/mL (0.01-0.04)
[2022-12-22 05:18] LABS: D Dimer Quantitative* 0.72 ug/ml (0.00-0.50)
[2022-12-22] MEDS: METHYLPREDNISOLONE SOD SUCC 40 MG/ML IVP (06:01)
[2022-12-22] MEDS: AZITHROMYCIN 250 MG TABLET 500 MG PO (06:01)
== END 2022-12-22 06:34 | disposition home or self-care (01) ==
PROVIDERS: Emergency Provider Internal Medicine; PCP Family Medicine
DX: J44.1 Chronic obstructive pulmonary disease with (acute) exacerbation (principal)
CPT/HCPCS: 36415; 71045; 80048; 84484; 85025; 85379; 87502; 87634; 87635; 93005; 96374; 99283; 99284; A9270; J2920

== ENCOUNTER 2022-12-22 06:59 | Outpatient (CLI) | payer MEDICARE, BC, MEDICAID, SELFPAY | END 2022-12-22 07:00 | disposition home or self-care (01) | LOC: AMB 12-25 10:16 | PROVIDERS: PCP Family Medicine; Visit Provider Internal Medicine | DX: J44.1 Chronic obstructive pulmonary disease with (acute) exacerbation (principal) | CPT/HCPCS: A0425; A0427; A0428 ==